=== PATIENT | female | born 1990 | race American Indian/Alaskan Native ===

== ENCOUNTER 2017-02-16 14:40 | Emergency (ER) | payer MEDICAID ==
[2017-02-16] MEDS ORDERED: Acetaminophen 500 MG Tab PO ONE (14:53)
--- NOTE | 2017-02-16 14:59 | EDM.PDOC ---
ED HPI GENERAL MEDICAL PROBLEM - General Chief Complaint: Skin Complaint Stated Complaint: CESEARAN AREA POSSIBLY INFECTED, [id number] Time Seen by Provider: 02/16/17 14:54 Source of Information: Reports: Patient History Limitations: Reports: No Limitations - History of Present Illness INITIAL COMMENTS - FREE TEXT/NARRATIVE: 26 yo [place] Female c/o Low Abdomen pain, Pt. s/p fourth csearean section Saturday (5 days ago). Pt. is out of Percocet. Onset: Today Onset Date: 02/16/17 Onset Time: 12:00 Duration: Day(s): Location: Reports: Abdomen Quality: Reports: Ache Severity: Moderate Worsens with: Reports: Movement Associated Symptoms: Reports: No Other Symptoms Lower Abdomen Pain Score (Numeric/FACES): 8 - Related Data Allergies Allergy/AdvReac Type Severity Reaction Status Date / Time amoxicillin Allergy Rash Verified 02/16/17 14:57 bupropion HCl Allergy Other Verified 02/16/17 14:57 [From Wellbutrin] venlafaxine HCl Allergy Other Verified 02/16/17 14:57 [From Effexor] prozac Allergy Nausea Uncoded 02/05/17 02:17 Home Meds: Home Meds Pnv No.122/Iron/Folic Acid [ Multi Tablet] 1 tab PO DAILY 02/05/17 [ History] Past Medical History - Past Health History Medical/Surgical History: Denies Medical/Surgical History HEENT History: Reports: None Cardiovascular History: Reports: Other (See Below) Other Cardiovascular History: pre-eclampsia with prior Respiratory History: Reports: None Gastrointestinal History: Reports: None Genitourinary History: Reports: Renal Calculus 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: Musculoskeletal History: Reports: None Neurological History: Reports: Seizure Psychiatric History: Reports: Addiction, Anxiety, Depression Endocrine/Metabolic History: Reports: Other (See Below) Other Endocrine/Metabolic History: Hx gestational diabetes Hematologic History: Reports: Anemia Immunologic History: Reports: None Oncologic (Cancer) History: Reports: None Dermatologic History: Reports: None - Infectious Disease History Infectious Disease History: Reports: None - Past Surgical History Head Surgeries/Procedures: Reports: None GI Surgical History: Reports: Cholecystectomy Social & Family History - Family History Family Medical History: Noncontributory - Tobacco Use Smoking Status *Q: Current Every Day Smoker Years of Tobacco use: 10 Packs/Tins Daily: 0.5 Used Tobacco, but Quit: No Second Hand Smoke Exposure: Yes - Caffeine Use Caffeine Use: Reports: Coffee, Soda - Alcohol Use Days Per Week of Alcohol Use: 0 - Recreational Drug Use Recreational Drug Use: Yes Recreational Drug Type: Reports: Benzodiazepines, Marijuana/Hashish ED ROS GENERAL - Review of Systems Review Of Systems: See Below Constitutional: Reports: No Symptoms HEENT: Reports: No Symptoms Respiratory: Reports: No Symptoms Cardiovascular: Reports: No Symptoms Endocrine: Reports: No Symptoms GI/Abdominal: Reports: Abdominal Pain (low mid pain) Musculoskeletal: Reports: No Symptoms Skin: Reports: No Symptoms Neurological: Reports: No Symptoms Psychiatric: Reports: No Symptoms Hematologic/Lymphatic: Reports: No Symptoms Immunologic: Reports: No Symptoms ED EXAM, SKIN/RASH Exam: See Below Exam Limited By: No Limitations General Appearance: Alert, WD/WN, No Apparent Distress Throat/Mouth: Normal Inspection Head: Atraumatic Neck: Normal Inspection Respiratory/Chest: No Respiratory Distress Cardiovascular: Normal Peripheral Pulses GI/Abdominal: Normal Bowel Sounds, Soft, Tender (mid low abdomen) Back Exam: Normal Inspection Extremities: Normal Inspection Neurological: Alert, Oriented, CN II-XII Intact Psychiatric: Normal Affect Skin: Warm, Dry, Intact, Normal Color, No Rash Lymphatic: No Adenopathy Course - Vital Signs Last Recorded V/S: Last Vital Signs Temp 37.1 C 02/16/17 14:47 Pulse 113 H 02/16/17 14:47 Resp 18 02/16/17 14:47 BP 146/75 H 02/16/17 14:47 Pulse Ox 98 02/16/17 14:47 - Orders/Labs/Meds Labs: Laboratory Tests 02/16/17 02/16/17 Range/Units 14:56 15:00 WBC 9.0 (5.0-10.0) 10^3/uL RBC 3.86 L (4.2-5.4) 10^6/uL Hgb 11.2 L (12.0-16.0) g/dL Hct 34.6 L (37.0-47.0) % MCV 89.6 (80-100) fL MCH 29.0 (27.0-34.0) pg MCHC 32.4 L (33.0-35.0) g/dL Plt Count 451 H (150-450) 10^3/uL Neut % (Auto) 61.3 (42.2-75.2) % Lymph % (Auto) 32.1 (20.5-50.1) % [place] % (Auto) 5.6 (2-8) % Eos % (Auto) 0.8 L (1.0-3.0) % Baso % (Auto) 0.2 (0.0-1.0) % Urine Color Straw (YELLOW) Urine Appearance Cloudy (CLEAR) Urine pH 6.5 (5.0-9.0) Ur Specific [place] 1.020 (1.005-1.030) Urine Protein Negative (NEGATIVE) Urine Glucose (UA) Negative (NEGATIVE) Urine Ketones Negative (NEGATIVE) Urine Occult Blood Trace-intact H (NEGATIVE) Urine Nitrite Negative (NEGATIVE) Urine Bilirubin Negative (NEGATIVE) Urine Urobilinogen 1.0 (0.2-1.0) mg/dL Ur Leukocyte Esterase Trace H (NEGATIVE) Urine RBC 0-5 /HPF Urine WBC 0-5 (0-5/HPF) /HPF Ur Epithelial Cells Few /HPF Amorphous Sediment Many H (0/HPF) /HPF Urine Bacteria Few (0-FEW/HPF) /HPF Urine Mucus Moderate H /LPF Meds: Medications Discontinued Medications Generic Name Dose Route Start Last Admin Trade Name Freq PRN Reason Stop Dose Admin Acetaminophen 500 mg 02/16/17 14:53 02/16/17 15:06 Tylenol Extra Strength PO 02/16/17 14:54 500 mg ONETIME ONE Administration Departure - Departure Time of Disposition: 15:49 Disposition: Home, Self-Care 01 Condition: Good Clinical Impression: Postoperative abdominal pain UTI (urinary tract infection) Qualifiers: Urinary tract infection type: acute cystitis Hematuria presence: with hematuria Qualified Code(s): N30.01 - Acute cystitis with hematuria - Discharge Information Forms: ED Department Discharge Additional Instructions: Rest Increase intake of Water and Cranberry Juice Take the oral antibiotic MCROBID 100mg BID # 14 For Post-op Pain : PERCOCET 5/325 take 1 Q 4-6 Hrs. PRN # 15 F/U w/ PCP
[2017-02-16 16:03] VITALS: BP 118/71
== END 2017-02-16 16:00 | disposition home or self-care (01) ==
LOC: DL.ED 14:40
DX: O86.22 Infection of bladder following delivery (principal); N30.01 Acute cystitis with hematuria; O99.89 Other specified diseases and conditions complicating pregnancy, childbirth and the puerperium; G89.18 Other acute postprocedural pain; O99.335 Smoking (tobacco) complicating the puerperium; F17.210 Nicotine dependence, cigarettes, uncomplicated; Z87.442 Personal history of urinary calculi; Z86.2 Personal history of diseases of the blood and blood-forming organs and certain disorders involving the immune mechanism; Z90.49 Acquired absence of other specified parts of digestive tract; Z88.1 Allergy status to other antibiotic agents; Z88.8 Allergy status to other drugs, medicaments and biological substances
CPT/HCPCS: 36415; 81001; 85025; 99284; A9270

== ENCOUNTER 2017-10-08 22:54 | Emergency (ER) | payer MEDICAID ==
[2017-10-08 23:38] VITALS: BP 145/90
[2017-10-09 00:45] LABS: CHLORIDE,CL 108 mmol/L (101-111); SODIUM,NA 141 mmol/L (135-145)
[2017-10-09] MEDS ORDERED: Potassium Chloride 10 MEQ Tab.ER PO ONE (01:06)
--- NOTE | 2017-10-09 01:11 | EDM.PDOC ---
ED HPI GENERAL MEDICAL PROBLEM - General Chief Complaint: Fever Stated Complaint: FEVER [id number] Time Seen by Provider: 10/08/17 23:15 Source of Information: Reports: Patient, RN, RN Notes Reviewed History Limitations: Reports: No Limitations - History of Present Illness INITIAL COMMENTS - FREE TEXT/NARRATIVE: Pt presents to the ER with c/o fever. She states her temperature has been running about 99.4 for the past month. She states she has been to the clinic twice in the past month for other things, but did not think to mention her lingering temperature. Patient denies chills, sob, cp, N/V/D. She denies any sources of skin infection. She denies cough, sore throat, ear pain. Patient states she has been having some bilateral flank pain at times for the past few weeks. 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 Bilateral Flank Pain Score (Numeric/FACES): 4 - Related Data Allergies Allergy/AdvReac Type Severity Reaction Status Date / Time amoxicillin Allergy Rash Verified 10/08/17 23:03 bupropion HCl Allergy Other Verified 10/08/17 23:03 [From Wellbutrin] venlafaxine HCl Allergy Other Verified 10/08/17 23:03 [From Effexor] prozac Allergy Nausea Uncoded 10/08/17 23:03 Home Meds: Home Meds Citalopram Hydrobromide [Celexa] 10 mg PO DAILY 10/08/17 [History] Vit D 1 tab PO WEEKLY 10/08/17 [History] Past Medical History - Past Health History Medical/Surgical History: Denies Medical/Surgical History HEENT History: Reports: None Cardiovascular History: Reports: Other (See Below) Other Cardiovascular History: pre-eclampsia with prior Respiratory History: Reports: None Gastrointestinal History: Reports: None Genitourinary History: Reports: Renal Calculus 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: Musculoskeletal History: Reports: None Neurological History: Reports: Seizure Psychiatric History: Reports: Addiction, Anxiety, Depression Endocrine/Metabolic History: Reports: Other (See Below) Other Endocrine/Metabolic History: Hx gestational diabetes Hematologic History: Reports: Anemia Immunologic History: Reports: None Oncologic (Cancer) History: Reports: None Dermatologic History: Reports: None - Infectious Disease History Infectious Disease History: Reports: None - Past Surgical History Head Surgeries/Procedures: Reports: None GI Surgical History: Reports: Cholecystectomy Social & Family History - Family History Family Medical History: Noncontributory - Tobacco Use Smoking Status *Q: Current Every Day Smoker Years of Tobacco use: 9 Packs/Tins Daily: 1 Used Tobacco, but Quit: No Second Hand Smoke Exposure: Yes - Caffeine Use Caffeine Use: Reports: Coffee, Soda - Alcohol Use Days Per Week of Alcohol Use: 0 - Recreational Drug Use Recreational Drug Use: Yes Drug Use in Last 12 Months: Yes Recreational Drug Type: Reports: Marijuana/Hashish ED ROS GENERAL - Review of Systems Review Of Systems: ROS reveals no pertinent complaints other than HPI. ED EXAM, GENERAL - Physical Exam Exam: See Below Exam Limited By: No Limitations General Appearance: Alert, WD/WN, No Apparent Distress Eye Exam: Bilateral Eye: EOMI, Normal Inspection Ears: Normal External Exam, Normal Canal, Hearing Grossly Normal, Normal TMs Nose: Normal Inspection, Normal Mucosa, No Blood Throat/Mouth: Normal Inspection, Normal Lips, Normal Teeth, Normal Gums, Normal Oropharynx, Normal Voice, No Airway Compromise Head: Atraumatic, Normocephalic Neck: Normal Inspection, Supple, Non-Tender, Full Range of Motion Respiratory/Chest: No Respiratory Distress, Lungs Clear, Normal Breath Sounds, No Accessory Muscle Use, Chest Non-Tender Cardiovascular: Normal Peripheral Pulses, Regular Rate, Rhythm, No Edema, No Gallop, No JVD, No Murmur, No Rub Peripheral Pulses: 2+: Radial (L), Radial (R) GI/Abdominal: Normal Bowel Sounds, Soft, Non-Tender, No Organomegaly, No Distention, No Abnormal Bruit, No Mass (Female) Exam: Deferred Rectal (Female) Exam: Deferred Back Exam: Normal Inspection, Full Range of Motion, CVA Tenderness (L), CVA Tenderness (R) Extremities: Normal Inspection, Normal Range of Motion, Non-Tender, Normal Capillary Refill, No Pedal Edema Neurological: Alert, Oriented, CN II-XII Intact, Normal Cognition, Normal Gait, Normal Reflexes, No Motor/Sensory Deficits Psychiatric: Normal Affect, Normal Mood Skin Exam: Warm, Dry, Intact, Normal Color, No Rash Lymphatic: No Adenopathy Course - Vital Signs Last Recorded V/S: Last Vital Signs Temp 99.4 F 10/08/17 22:57 Pulse 93 10/08/17 22:57 Resp 16 10/08/17 22:57 BP 145/90 H 10/08/17 22:57 Pulse Ox 99 10/08/17 22:57 - Orders/Labs/Meds Labs: Laboratory Tests 10/08/17 10/08/17 10/08/17 Range/Units 23:10 23:10 23:10 WBC (5.0-10.0) 10^3/uL RBC (4.2-5.4) 10^6/uL Hgb (12.0-16.0) g/dL Hct (37.0-47.0) % MCV (80-100) fL MCH (27.0-34.0) pg MCHC (33.0-35.0) g/dL Plt Count (150-450) 10^3/uL Neut % (Auto) (42.2-75.2) % Lymph % (Auto) (20.5-50.1) % [place] % (Auto) (2-8) % Eos % (Auto) (1.0-3.0) % Baso % (Auto) (0.0-1.0) % Sodium (135-145) mmol/L Potassium (3.6-5.0) mmol/L Chloride (101-111) mmol/L Carbon Dioxide (21.0-31.0) mmol/L Anion Gap BUN (7-18) mg/dL Creatinine (0.6-1.3) mg/dL Est Cr Clr Drug Dosing mL/min Estimated GFR (MDRD) BUN/Creatinine Ratio Glucose (74-105) mg/dL Calcium (8.4-10.2) mg/dl Total Bilirubin (0.2-1.0) mg/dL AST (10-42) IU/L ALT (10-60) IU/L Alkaline Phosphatase (42-121) IU/L Total Protein (6.7-8.2) g/dl Albumin (3.2-5.5) g/dl Globulin Albumin/Globulin Ratio Urine Color Yellow (YELLOW) Urine Appearance Slightly cloudy (CLEAR) Urine pH 6.0 (5.0-9.0) Ur Specific [place] 1.025 (1.005-1.030) Urine Protein 30 H (NEGATIVE) Urine Glucose (UA) Negative (NEGATIVE) Urine Ketones Negative (NEGATIVE) Urine Occult Blood Negative (NEGATIVE) Urine Nitrite Negative (NEGATIVE) Urine Bilirubin Negative (NEGATIVE) Urine Urobilinogen 0.2 (0.2-1.0) mg/dL Ur Leukocyte Esterase Negative (NEGATIVE) Urine RBC 0-5 /HPF Urine WBC 0-5 (0-5/HPF) /HPF Ur Epithelial Cells Few /HPF Urine Bacteria Few (0-FEW/HPF) /HPF Urine Mucus Moderate H /LPF Urine HCG, Qual Negative Urine Opiates Screen Negative (NEGATIVE) Ur Oxycodone Screen Negative (NEGATIVE) Urine Methadone Screen Negative (NEGATIVE) Ur Barbiturates Screen Negative (NEGATIVE) U Tricyclic Antidepress Negative (NEGATIVE) Ur Phencyclidine Scrn Negative (NEGATIVE) Ur Amphetamine Screen Negative (NEGATIVE) U Methamphetamines Scrn Negative (NEGATIVE) Urine MDMA Screen Negative (NEGATIVE) U Benzodiazepines Scrn Negative (NEGATIVE) Urine Cocaine Screen Negative (NEGATIVE) U Marijuana (THC) Screen Positive H (NEGATIVE) 10/09/17 10/09/17 Range/Units 00:12 00:12 WBC 8.0 (5.0-10.0) 10^3/uL RBC 3.75 L (4.2-5.4) 10^6/uL Hgb 10.0 L (12.0-16.0) g/dL Hct 31.1 L (37.0-47.0) % MCV 82.9 D (80-100) fL MCH 26.7 L (27.0-34.0) pg MCHC 32.2 L (33.0-35.0) g/dL Plt Count 307 D (150-450) 10^3/uL Neut % (Auto) 54.8 (42.2-75.2) % Lymph % (Auto) 31.3 (20.5-50.1) % [place] % (Auto) 11.1 H (2-8) % Eos % (Auto) 2.4 (1.0-3.0) % Baso % (Auto) 0.4 (0.0-1.0) % Sodium 141 (135-145) mmol/L Potassium 2.9 L (3.6-5.0) mmol/L Chloride 108 (101-111) mmol/L Carbon Dioxide 27.0 (21.0-31.0) mmol/L Anion Gap 8.9 BUN 21 H (7-18) mg/dL Creatinine 0.5 L (0.6-1.3) mg/dL Est Cr Clr Drug Dosing 140.41 mL/min Estimated GFR (MDRD) > 60 BUN/Creatinine Ratio 42.00 Glucose 84 (74-105) mg/dL Calcium 8.8 (8.4-10.2) mg/dl Total Bilirubin 0.5 (0.2-1.0) mg/dL AST 23 (10-42) IU/L ALT 22 (10-60) IU/L Alkaline Phosphatase 55 (42-121) IU/L Total Protein 7.1 (6.7-8.2) g/dl Albumin 3.6 (3.2-5.5) g/dl Globulin 3.5 Albumin/Globulin Ratio 1.03 Urine Color (YELLOW) Urine Appearance (CLEAR) Urine pH (5.0-9.0) Ur Specific [place] (1.005-1.030) Urine Protein (NEGATIVE) Urine Glucose (UA) (NEGATIVE) Urine Ketones (NEGATIVE) Urine Occult Blood (NEGATIVE) Urine Nitrite (NEGATIVE) Urine Bilirubin (NEGATIVE) Urine Urobilinogen (0.2-1.0) mg/dL Ur Leukocyte Esterase (NEGATIVE) Urine RBC /HPF Urine WBC (0-5/HPF) /HPF Ur Epithelial Cells /HPF Urine Bacteria (0-FEW/HPF) /HPF Urine Mucus /LPF Urine HCG, Qual Urine Opiates Screen (NEGATIVE) Ur Oxycodone Screen (NEGATIVE) Urine Methadone Screen (NEGATIVE) Ur Barbiturates Screen (NEGATIVE) U Tricyclic Antidepress (NEGATIVE) Ur Phencyclidine Scrn (NEGATIVE) Ur Amphetamine Screen (NEGATIVE) U Methamphetamines Scrn (NEGATIVE) Urine MDMA Screen (NEGATIVE) U Benzodiazepines Scrn (NEGATIVE) Urine Cocaine Screen (NEGATIVE) U Marijuana (THC) Screen (NEGATIVE) Meds: Medications Discontinued Medications Generic Name Dose Route Start Last Admin Trade Name Freq PRN Reason Stop Dose Admin Potassium Chloride 40 meq 10/09/17 01:06 10/09/17 01:13 Klor-Con 10 PO 10/09/17 01:07 40 meq ONETIME ONE Administration Departure - Departure Time of Disposition: 01:11 Disposition: Home, Self-Care 01 Condition: Fair Clinical Impression: Physically well but worried - Discharge Information Instructions: Fever, Adult, [id number] Forms: ED Department Discharge Additional Instructions: May use tylenol and/or ibuprofen for pain/fever RX: Potassium Chloride FOllow up with your primary care facility
== END 2017-10-09 01:20 | disposition home or self-care (01) ==
LOC: DL.ED 22:54
DX: Z71.1 Person with feared health complaint in whom no diagnosis is made (principal); F17.210 Nicotine dependence, cigarettes, uncomplicated; Z88.1 Allergy status to other antibiotic agents; Z88.8 Allergy status to other drugs, medicaments and biological substances; Z79.899 Other long term (current) drug therapy
CPT/HCPCS: 36415; 80053; 80305; 81001; 81025; 85025; 99283; A9270-GY

== ENCOUNTER 2017-11-25 20:55 | Emergency (ER) | payer MEDICAID ==
[2017-11-25] MEDS ORDERED: traMADol 50 MG Tab PO ONE (20:56)
[2017-11-25 21:00] VITALS: BP 141/77
[2017-11-25] MEDS ORDERED: Silver Sulfadiazine 1% Crm 50 GM Tube TOP ONE (21:09)
[2017-11-25] MEDS ORDERED: traMADol 50 MG Tab ONE (21:15)
--- NOTE | 2017-11-25 21:20 | EDM.PDOC ---
ED HPI GENERAL MEDICAL PROBLEM - General Chief Complaint: Burn Stated Complaint: LUEVANO ON FEET Time Seen by Provider: 11/25/17 21:05 Source of Information: Reports: Patient History Limitations: Reports: No Limitations - History of Present Illness INITIAL COMMENTS - FREE TEXT/NARRATIVE: Pain bilateral inner anles, states spilled tomatoe soup while at work short time ago. Blistered immediately. Bilateral Feet Pain Score (Numeric/FACES): 10 - Related Data Allergies Allergy/AdvReac Type Severity Reaction Status Date / Time amoxicillin Allergy Rash Verified 11/25/17 21:03 bupropion HCl Allergy Other Verified 11/25/17 21:03 [From Wellbutrin] venlafaxine HCl Allergy Other Verified 11/25/17 21:03 [From Effexor] prozac Allergy Nausea Uncoded 11/25/17 21:03 Past Medical History - Past Health History Medical/Surgical History: Denies Medical/Surgical History HEENT History: Reports: None Cardiovascular History: Reports: Other (See Below) Other Cardiovascular History: pre-eclampsia with prior Respiratory History: Reports: None Gastrointestinal History: Reports: None Genitourinary History: Reports: Renal Calculus 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: Musculoskeletal History: Reports: None Neurological History: Reports: Seizure Psychiatric History: Reports: Addiction, Anxiety, Depression Endocrine/Metabolic History: Reports: Other (See Below) Other Endocrine/Metabolic History: Hx gestational diabetes Hematologic History: Reports: Anemia Immunologic History: Reports: None Oncologic (Cancer) History: Reports: None Dermatologic History: Reports: None - Infectious Disease History Infectious Disease History: Reports: None - Past Surgical History Head Surgeries/Procedures: Reports: None GI Surgical History: Reports: Cholecystectomy Female Surgical History: Reports: Section Social & Family History - Family History Family Medical History: Noncontributory - Tobacco Use Smoking Status *Q: Current Every Day Smoker Years of Tobacco use: 8 Packs/Tins Daily: 1 - Caffeine Use Caffeine Use: Reports: Coffee, Soda - Recreational Drug Use Recreational Drug Use: No ED ROS GENERAL - Review of Systems Review Of Systems: ROS reveals no pertinent complaints other than HPI. ED EXAM, BURN/SMOKE INHALATION - Physical Exam Exam: See Below Exam Limited By: No Limitations General Appearance: Alert, Anxious, Moderate Distress Eye Exam: Bilateral Eye: EOMI Respiratory: No Respiratory Distress Cardiovascular: Normal Peripheral Pulses Neurological: Alert Psychiatric: Normal Affect, Anxious Skin Exam: Warm, Other (3x4 cm splach luevano bilateral inner foot, central 2nd degree burn/blistering 1.5cm left, 2 cm right, intact no weeping) Course - Vital Signs Last Recorded V/S: Last Vital Signs Temp 99.0 F 11/25/17 20:58 Pulse 112 H 11/25/17 20:58 Resp 16 11/25/17 20:58 BP 141/77 H 11/25/17 20:58 Pulse Ox 96 11/25/17 20:58 - Orders/Labs/Meds Meds: Medications Discontinued Medications Generic Name Dose Route Start Last Admin Trade Name Aurelia PRN Reason Stop Dose Admin Silver Sulfadiazine 50 gm 11/25/17 21:09 11/25/17 21:16 Silvadene 1% Cream 50 Gm TOP 11/25/17 21:10 1 unit ONETIME ONE Administration Tramadol HCl Confirm 11/25/17 21:15 11/25/17 21:31 Ultram Administered 11/25/17 21:16 Not Given Dose 100 mg .ROUTE .STK-MED ONE Departure - Departure Time of Disposition: 21:16 Disposition: Home, Self-Care 01 Condition: Good Clinical Impression: Burn, foot, second degree Qualifiers: Encounter type: initial encounter Laterality: unspecified laterality Qualified Code(s): T25.229A - Burn of second degree of unspecified foot, initial encounter - Discharge Information Instructions: Burn Care, Adult, [id number] Referrals: Keo Diez MD [Primary Care Provider] - Forms: ED Department Discharge Additional Instructions: Silvadene dressing change 2 times daily wash areas with cool soap and water twice daily follow up in clinic this week urgent if large increase redness, drainage or fever. Tylenol or ibuprofen for moderate pain tramadol 50mg one every 6 hours tonight for severe pain #2
== END 2017-11-25 21:28 | disposition home or self-care (01) ==
LOC: DL.ED 20:55
DX: T25.221A Burn of second degree of right foot, initial encounter (principal); T25.222A Burn of second degree of left foot, initial encounter; F17.210 Nicotine dependence, cigarettes, uncomplicated; Z88.1 Allergy status to other antibiotic agents; Z88.8 Allergy status to other drugs, medicaments and biological substances; X10.1XXA Contact with hot food, initial encounter; Y99.0 Civilian activity done for income or pay
CPT/HCPCS: 16020; 99283; A9270

== ENCOUNTER 2017-12-29 14:45 | Emergency (ER) | payer MEDICAID ==
[2017-12-29 15:10] VITALS: BP 102/58
[2017-12-29] MEDS ORDERED: Bacitracin Oint 1 GM U/D Packet TOP ONE (15:25)
--- NOTE | 2017-12-29 15:32 | EDM.PDOC ---
Scribed by Deena Anthony 12/29/17 1532 for Gavin Awda MD ED HPI GENERAL MEDICAL PROBLEM - General Chief Complaint: Laceration Stated Complaint: hand cut [id number] Time Seen by Provider: 12/29/17 15:15 Source of Information: Reports: Patient, RN, RN Notes Reviewed History Limitations: Reports: No Limitations - History of Present Illness INITIAL COMMENTS - FREE TEXT/NARRATIVE: Patient presented to ER with complaint of abrasion to left hand on a nail at her home prior to arrival. No other injuries. Tetanus is up to date. Onset: Today Location: Reports: Upper Extremity, Left Quality: Reports: Ache Severity: Mild Improves with: Reports: None Worsens with: Reports: None Associated Symptoms: Reports: No Other Symptoms Left Hand Pain Score (Numeric/FACES): 7 - Related Data Allergies Allergy/AdvReac Type Severity Reaction Status Date / Time amoxicillin Allergy Rash Verified 12/29/17 15:06 bupropion HCl Allergy Other Verified 12/29/17 15:06 [From Wellbutrin] venlafaxine HCl Allergy Other Verified 12/29/17 15:06 [From Effexor] prozac Allergy Nausea Uncoded 12/29/17 15:06 Home Meds: Home Meds Buprenorphine HCl/Naloxone HCl [Zubsolv 8.6-2.1 mg Tablet Sl] 1 each SL BID 07/18 [History] Sertraline HCl [Zoloft] 150 mg PO DAILY 12/29/17 [History] Past Medical History - Past Health History Medical/Surgical History: Denies Medical/Surgical History HEENT History: Reports: None Cardiovascular History: Reports: Other (See Below) Other Cardiovascular History: pre-eclampsia with prior Respiratory History: Reports: None Gastrointestinal History: Reports: None Genitourinary History: Reports: Renal Calculus 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: Musculoskeletal History: Reports: None Neurological History: Reports: Seizure Psychiatric History: Reports: Addiction, Anxiety, Depression Endocrine/Metabolic History: Reports: Other (See Below) Other Endocrine/Metabolic History: Hx gestational diabetes Hematologic History: Reports: Anemia Immunologic History: Reports: None Oncologic (Cancer) History: Reports: None Dermatologic History: Reports: None - Infectious Disease History Infectious Disease History: Reports: None - Past Surgical History Head Surgeries/Procedures: Reports: None GI Surgical History: Reports: Cholecystectomy Female Surgical History: Reports: Section Social & Family History - Family History Family Medical History: Noncontributory - Tobacco Use Smoking Status *Q: Current Every Day Smoker Years of Tobacco use: 5 Packs/Tins Daily: 1 - Caffeine Use Caffeine Use: Reports: None - Recreational Drug Use Recreational Drug Use: No ED ROS GENERAL - Review of Systems Review Of Systems: ROS reveals no pertinent complaints other than HPI. ED EXAM, SKIN/RASH Exam: See Below Exam Limited By: No Limitations General Appearance: Alert, WD/WN, No Apparent Distress Head: Atraumatic, Normocephalic Respiratory/Chest: No Respiratory Distress Cardiovascular: Normal Peripheral Pulses Extremities: Other (3cm superficial abrasion to the hypothenar eminence of the left hand. No FB, no active bleeding.) Course - Vital Signs Last Recorded V/S: Last Vital Signs Temp 36.8 C 12/29/17 15:07 Pulse 80 12/29/17 15:07 Resp 16 12/29/17 15:07 BP 102/58 L 12/29/17 15:07 Pulse Ox 100 12/29/17 15:07 - Orders/Labs/Meds Meds: Medications Discontinued Medications Generic Name Dose Route Start Last Admin Trade Name Freq PRN Reason Stop Dose Admin Bacitracin 1 dose 12/29/17 15:25 Bacitracin Oint 1 Gm TOP 12/29/17 15:26 ONETIME ONE Departure - Departure Time of Disposition: 15:26 Disposition: Home, Self-Care 01 Condition: Good Clinical Impression: Abrasion hand Qualifiers: Encounter type: initial encounter Laterality: left Qualified Code(s): S60.512A - Abrasion of left hand, initial encounter - Discharge Information Instructions: Abrasion, [id number] Forms: ED Department Discharge Additional Instructions: RX: Bactroban 0.2%. Follow up in clinic if any further problems. I have read and agree with the documentation that has been completed regarding this visit. By signing this record, I attest that the documentation was completed in my physical presence and is an accurate record of the encounter.
== END 2017-12-29 15:43 | disposition home or self-care (01) ==
LOC: DL.ED 14:45
DX: S60.512A Abrasion of left hand, initial encounter (principal); F17.210 Nicotine dependence, cigarettes, uncomplicated; Z88.1 Allergy status to other antibiotic agents; Z88.8 Allergy status to other drugs, medicaments and biological substances; W23.1XXA Caught, crushed, jammed, or pinched between stationary objects, initial encounter
CPT/HCPCS: 99283

== ENCOUNTER 2018-09-24 10:11 | Inpatient (IN) | payer MEDICAID ==
[~2018-09-24 10:11] MED LIST: Oxytocin/Normal Saline 30 UNIT/500 ML BAG IV ONE
[2018-09-24] MEDS ORDERED: Citric Acid/Sodium Citrate Solution 30 ML Cup PO ONE (10:18)
[2018-09-24] MEDS ORDERED: ceFAZolin 2 GM in Premix Bag 1 BAG IV ONE (10:18)
[2018-09-24] MEDS ORDERED: Methylergonovine 0.2 MG/1 ML Amp IM PRN (10:37)
[2018-09-24] MEDS ORDERED: Carboprost Tromethamine 250 MCG/1 ML Amp IM ONE (10:37)
[2018-09-24] MEDS ORDERED: diphenhydrAMINE 50 MG/ML SDV IVPUSH PRN (10:37)
[2018-09-24] MEDS ORDERED: Acetaminophen/oxyCODONE 325-5 MG Tab PO PRN ×2 (10:37)
[2018-09-24] MEDS ORDERED: Ondansetron 4 MG/2 ML SDV IV PRN (10:37)
[2018-09-24] MEDS ORDERED: ePHEDrine 50 MG/ML SDV IVPUSH PRN (10:37)
[2018-09-24] MEDS ORDERED: Naloxone 2 MG/2 ML Syringe IVPUSH PRN (10:37)
[2018-09-24] MEDS ORDERED: Acetaminophen 325 MG Tab PO PRN (10:37)
[2018-09-24] MEDS ORDERED: Tranexamic Acid 1,000 MG in Sodium Chloride 0.9% 100 ML IV PRN (10:37)
[2018-09-24] MEDS ORDERED: Misoprostol 400 MCG (4 X 100 MCG TAB) RECTAL PRN (10:37)
[2018-09-24] MEDS ORDERED: Oxytocin/Normal Saline 30 UNIT/500 ML BAG IV SCH (10:45)
[2018-09-24] MEDS ORDERED: Lactated Ringers 1,000 ML IV SCH (10:45)
[2018-09-24] MEDS: Lactated Ringers 1,000 ML IV SCH ×5 (10:59→23:59)
[2018-09-24] MEDS ORDERED: hydrOXYzine HCl 25 MG Tab PO ONE (15:13)
[2018-09-24] MEDS: Simethicone 80 MG Tab.Chew PO SCH ×3 (15:14→20:13)
[2018-09-24] MEDS ORDERED: Morphine 2 MG/ML Syringe IV PRN (16:42)
[2018-09-24] MEDS: Morphine 2 MG/ML Syringe IV PRN ×2 (17:13→20:18)
[2018-09-24] MEDS: Ketorolac 30 MG/ML SDV IVPUSH SCH ×2 (17:50→23:51)
[2018-09-24] MEDS ORDERED: BUPRENORPHINE 2 MG SL SCH (20:00)
[2018-09-24] MEDS ORDERED: [UNRECOGNIZED DRUG - REMARK] SL ONE (20:00)
[2018-09-24] MEDS: Docusate Sodium 100 MG Cap PO PRN (20:13)
[2018-09-25] MEDS: Ketorolac 30 MG/ML SDV IVPUSH SCH (05:39)
[2018-09-25] MEDS: Morphine 2 MG/ML Syringe IV PRN ×5 (05:42→22:28)
[2018-09-25] MEDS: Docusate Sodium 100 MG Cap PO PRN ×2 (09:09→21:22)
[2018-09-25] MEDS: Simethicone 80 MG Tab.Chew PO SCH ×4 (09:10→21:22)
[2018-09-25] MEDS: Prenatal Multivitamin with Calcium/Folic Acid/Iron Tab PO SCH (09:10)
--- NOTE | 2018-09-25 09:42 | OR ---
DATE: 09/24/2018 PREOPERATIVE DIAGNOSES: 1. Intrauterine at 39 and 1/7th weeks by 22 and 5/7 week ultrasound. 2. Preeclampsia. 3. Contractions upon admit. 4. Gestational diabetes mellitus with questionable control and noncompliance. Blood sugar - 79 fasting in the operating room prior to delivery. 5. Anemia of with hemoglobin of 9.6 on the date of admission. 6. Insufficient care. 7. Previous x4, requests repeat low-transverse section. 8. Hepatitis C positive. 9. Group B Streptococcus negative. 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 11.G6, P4-0-1-4. POSTOPERATIVE DIAGNOSES: 1. Intrauterine at 39 and 1/7th weeks by 22 and 5/7 week ultrasound, delivered. 2. Preeclampsia. 3. Contractions upon admit. 4. Gestational diabetes mellitus with questionable control and noncompliance. Blood sugar - 79 fasting in the operating room prior to delivery. 5. Anemia of with hemoglobin of 9.6 on the date of admission. 6. Insufficient care. 7. Previous x4, requests repeat low-transverse section. 8. Hepatitis C positive. 9. Group B Streptococcus negative. 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 11.G6, P4-0-1-4. PROCEDURE PERFORMED: Repeat low-transverse . ASSET ANALYST: Jasbir Martinez MD. ANESTHESIA: Spinal. EBL: 500 mL. IV FLUIDS: 1800 mL. URINE OUT: 300 mL and clear yellow. START TIME: 1209 hours. UTERINE INCISION: 1212 hours. DELIVERY TIME: 1213 hours. STOP TIME: 1230 hours. FINDINGS: Male, scores and weight pending. DESCRIPTION OF PROCEDURE IN DETAIL: After proper consent was obtained, the patient was brought to the operating room, where spinal anesthetic was administered. Ulrich was placed under preop under sterile conditions. Abdomen was prepped and draped in the normal sterile fashion with the patient was placed in supine position with left lateral tilt. A skin incision was then made over the lower abdomen in transverse Pfannenstiel- type fashion over previous scar. This was carried down to the fascia, which was scored in midline. Subcutaneous tissue was raked laterally with Summers retractor and fascial incision was extended with curved Mayos laterally. Soraida clamps times two were used to grasp the superior aspect of the fascia and rectus muscles were dissected from the fascia using sharp and blunt technique. In a similar fashion, Soraida clamps times two were used to grasp the inferior portion of the incision and rectus and pyramidalis muscles were dissected from the fascia using sharp and blunt technique. The rectus muscles were in midline with blunt technique. Abdominal cavity was then entered in blunt technique, and incision was extended superiorly and inferiorly with blunt technique. O large retractor was then introduced and used. Vesicouterine peritoneum was identified and incised in transverse fashion with Metzenbaum scissors and bladder flap was made digitally. A curvilinear incision was made on the lower uterine segment at 1212 hours. Clear fluid returned. Uterine incision was then extended in transverse fashion using blunt technique. vertex was then delivered through the incision followed by the rest of the infant without difficulty. Mouth and nares were suctioned. Cord was doubly clamped and cut. Infant was brought over to team. Then, approximately 10 mL cord blood obtained for labs. Placenta was then delivered with gentle cord traction and fundal massage. Uterine cavity was then cleared of all blood clots and debris with lap sponge. Childers clamps were used to grasp the uterine incision, and this was closed in a running, locked fashion, tied at lateral margins with 1-0 Vicryl. Left of midline was an area of bleeding, requiring one [id number] stitch and hemostasis was reassured thereafter. First inspection of the uterine incision revealed hemostasis. O retractor was then removed and paracolic gutters were then cleared of all blood clots and debris with lap sponge. Anterior cul-de-sac was then irrigated copiously and all blood clots removed. Second and final inspection of the uterine incision and anterior cul-de-sac revealed hemostasis. Rectus muscles were then reapproximated in the midline with a [id number] stitch of 1-0 Vicryl. Subfascial tissues were found to be hemostatic and fascia was closed in running fashion and tied at lateral margins with 0 looped PDS. Subcutaneous tissue was irrigated copiously and hemostasis was reassured. Skin was reapproximated with medium yvonne. Sterile Aquacel dressing was applied. Uterine fundus was firm and massaged at the conclusion of the case. No immediate complications were noted. Sponge, lap, and needle counts were correct. The patient received 2 g of Ancef preoperatively and Pitocin per protocol. The patient will receive Toradol at the conclusion of case for pain control. Mother and are currently stable at the time of dictation. [facility] /[id number]
--- NOTE | 2018-09-25 10:03 | PN ---
DATE: 09/24/2018 SUBJECTIVE: The patient has had some concerns with pain. She has been able barely to move her legs. She is now status post surgery approximately 4-1/2 hours to 5 hours and she did receive a spinal. Trace Grant, her pain specialist, who has her on buprenorphine contract, was contacted in regard to this patient earlier and he has now called in medications for her. OBJECTIVE: VITAL SIGNS: Blood pressure last one was 155/75, heart rate 48, temperature 97.3. Urine output is adequate. LUNGS: Clear to auscultation bilaterally HEART: S1-S2, regular rate rhythm. PELVIC: Firm uterus around the umbilicus. When distracted, no elicited pain is noted. She is able to move her toes minimally, cannot lift her legs completely up at this point in time. On serial evaluations, the patient was evaluated couple of times during her episodes that she was somewhat tearful and wanted something for pain. I did discuss this case with Trace Grant, mid-level provider, who is her pain specialist/person that works with her with buprenorphine. He has recommended and called in Suboxone to be given twice a day, start the evening dose tonight when it becomes available through the clinic and there were concerns with Medicaid covering this, but it appears that we can at least give one dose tonight and some tomorrow. Two calls were made to Trace as the patient did describe wanting to go off the Suboxone/buprenorphine, and discussed this with Trace, he said it would be okay as long as morphine was given and the patient was followed closely, however, he would be done with any type of pain contracts with her. Review of chart and records does reveal she has had a buprenorphine type contract with Trace and these have been canceled in the past with history of noncompliance. When asking Trace for further recommendations, he has recommended that if the patient is in pain, may give short-acting opioids in the form of morphine IV, but we will need to watch for respiratory depression and other concerns closely. ASSESSMENT AND PLAN: Postoperative day #0, status post repeat low transverse C- section with suspected preeclampsia, no signs and symptoms of severe preeclampsia at this point in time. The initial buprenorphine that was ordered will be stopped, it has not been given at this point in time, and we will use Suboxone for what Trace has recommended. For her pain, we will recommend morphine 1-2 mg IV q.1 hour p.r.n. for moderate-severe pain respectively. Discussed the use of medication adverse and unwanted effects, as well as precautions with the patient as well as requirement for continuous O2 sat monitoring and infant will need to be monitored in the Nursery as she may have significant sedation with this. I did discuss the patient that she may go off her buprenorphine/ Suboxone, but Trace most likely would terminate care with her and he, and the patient at this point in time has agreed to continue on her Suboxone and follow Trace's recommendations and we will treat pain with morphine as above. The patient described discriminatory care stating that she does not wanted to be discriminated again. It was discussed with patient that we have contacted the pharmacist, Trace Grant, and other specialists in the [facility] in regard to how to treat her in terms of her pain and watching for adverse affects and we are doing her best and making a game plan as above. I did discuss with her, it is rare that she is in pain this close after having her spinal anesthesia. I did discuss following as above and treating as above. Over 45 minutes has been spent in regard to the patient care, evaluation, and management in regard to her pain issues and we will treat as above. Of note, Trace Grant has left his cell phone #[phone], as he is her pain specialist, and he is on-call tonight as well, and may need to consult him further but at this point in time, we will continue with the morphine 1-2 mg IV q.1 hour p.r.n. pain, as well as Suboxone that he has recommended, and we will continue with these medications following for any adverse affects and make treatment plans accordingly. [facility] /[id number]
--- NOTE | 2018-09-25 10:42 | PN ---
DATE: 09/25/2018 Postoperative day #1 SUBJECTIVE: The patient is tolerating p.o., has not ambulated yet. At this point in time, Ulrich is in place. Passing gas. Pain is under control. The patient did receive up to 3 doses of morphine last night. There was an issue as she has been on buprenorphine in the past and has a contract with Trace Grant. He has been involved in the care through the phone, please see previous dictations in regard to this. The patient did receive her Suboxone last night and will be receiving it today if we can get it through the pharmacy. OBJECTIVE: Vital Signs: Temperature 92, heart rate 74, blood pressure 124/70, respiratory rate 16 to 14 and O2 saturations 96% to 97% on room air. Appearance: Wakes appropriately. In no obvious distress. Lungs: Clear to auscultation bilaterally. Heart: S1, S2. Regular rate and rhythm. Pelvic: Firm uterus -1 below umbilicus. Aquacel dressing has mild tracing on the right, no saturation noted. SCDs are on. Ulrich is in. I's and O's revealed 1150 out within 5 hours. LABORATORY DATA: White cell count 11.4, hemoglobin 7.8, and platelets 253 with hemoglobin yesterday being 9.6. ASSESSMENT AND PLAN: 1. Postoperative day #1, status post repeat low transverse section. 2. Anemia of acute blood loss, hemoglobin dropping down to 7.8. 3. Issues with pain control/contract in the past. Trace Grant has been involved with this. His cellphone has been posted at the OB floor if there are any questions and at this point in time, we will continue with Suboxone twice a day per his recommendation and morphine as needed, the patient only received 3 doses last night. We will continue to follow clinically and closely. Did discuss with the patient goals today of ambulating and being able to take Ulrich out and decreasing how many pain meds she is using because she will not be receiving narcotics when she leaves at the recommendation of her pain specialist. [facility] /[id number]
[2018-09-25] MEDS: [UNRECOGNIZED DRUG - REMARK] SL SCH ×2 (12:08→21:21)
[2018-09-25] MEDS: Ibuprofen 800 MG Tab PO PRN ×2 (13:29→21:23)
[2018-09-26] MEDS: Ibuprofen 800 MG Tab PO PRN ×3 (05:11→21:01)
[2018-09-26] MEDS: Morphine 2 MG/ML Syringe IV PRN (05:13)
[2018-09-26] MEDS ORDERED: Acetaminophen 325 MG Tab PO PRN (08:33)
[2018-09-26] MEDS: Simethicone 80 MG Tab.Chew PO SCH ×4 (09:10→21:00)
[2018-09-26] MEDS: Prenatal Multivitamin with Calcium/Folic Acid/Iron Tab PO SCH (09:10)
[2018-09-26] MEDS: Docusate Sodium 100 MG Cap PO PRN ×2 (09:10→21:01)
[2018-09-26] MEDS: Ferrous Sulfate 325 MG Tab PO SCH (09:10)
[2018-09-26] MEDS: [UNRECOGNIZED DRUG - REMARK] SL SCH (09:11)
[2018-09-26] MEDS: Acetaminophen 500 MG Tab PO PRN ×3 (09:13→22:23)
--- NOTE | 2018-09-26 13:33 | PN ---
DATE: 09/26/2018 Postoperative day #2. SUBJECTIVE: The patient is tolerating p.o., ambulating, urinating, passing flatus. She states her pain is under control. Did use two doses of morphine throughout the night. Nurses note decreased ambulation compared to as expected. The patient denies any headaches, visual changes, or upper abdominal pain. OBJECTIVE: Vital Signs: Temperature 98.5, heart rate 57, blood pressure 150s/90s; last 151/90; respiratory rate 18, O2 sats 98%. Lungs: Clear to auscultation bilaterally. Heart: S1, S2. Regular rate and rhythm. Abdomen: Firm uterus -2 below umbilicus. Aquacel dressing appears dry and intact with traced area on the right, unchanged. Extremities: No peripheral edema. No calf pain. ASSESSMENT AND PLAN: 1. Postop day #2; status post repeat low-transverse section. 2. Preeclampsia. The patient's blood pressures have been elevated. They are not in the severe range. We will continue to follow clinically and closely. 3. History of opioid and benzodiazepine abuse with negative urine drug screen upon admission and being on buprenorphine prior to admission; Suboxone has been called in by Trace Grant, patient's specialist, in regard to this. We will make call to his office to figure out discharge planning in terms of scripts that she can have and medication recommendations with anticipate discharge tomorrow. 4. Anemia acute blood loss. Hemoglobin dropped down to 7.8, yesterday we will repeat CBC tomorrow patient is currently asymptomatic. Vital signs are stable. We will follow closely in regard to this and start iron as well. Plans were discussed with patient; she understands and agrees, and we will anticipate follow up in the clinic with Dr. Diez on Saturday for staple removal as well as re-evaluating her baby. Dr. Molina covering in my absence thru weekend. MOD /[id number] MTDD
[2018-09-26] MEDS ORDERED: Ketorolac 30 MG/ML SDV IVPUSH ONE (14:41)
[2018-09-26] MEDS ORDERED: Propofol 200 MG/20 ML SDV IV ONE (14:41)
[2018-09-26] MEDS ORDERED: Morphine PF 1 MG/ML Amp ONE (14:41)
[2018-09-26] MEDS ORDERED: Ondansetron 4 MG/2 ML SDV IV ONE (14:41)
[2018-09-26] MEDS ORDERED: [UNRECOGNIZED DRUG - REMARK] SL SCH ×2 (17:00→21:00)
[2018-09-26] MEDS ORDERED: Labetalol 100 MG Tab PO ONE (20:40)
[2018-09-27] MEDS: Ibuprofen 800 MG Tab PO PRN ×2 (05:14→13:48)
[2018-09-27] MEDS ORDERED: [UNRECOGNIZED DRUG - REMARK] SL ONE (06:30)
[2018-09-27] MEDS: Prenatal Multivitamin with Calcium/Folic Acid/Iron Tab PO SCH (09:24)
[2018-09-27] MEDS: Docusate Sodium 100 MG Cap PO PRN (09:24)
[2018-09-27] MEDS: Simethicone 80 MG Tab.Chew PO SCH (09:25)
[2018-09-27] MEDS: Ferrous Sulfate 325 MG Tab PO SCH (09:25)
[2018-09-27 11:18] VITALS: BP 125/84
[2018-09-27] MEDS: Acetaminophen 500 MG Tab PO PRN (13:48)
[2018-09-27] MEDS ORDERED: [UNRECOGNIZED DRUG - REMARK] SL SCH (17:00)
--- NOTE | 2018-09-27 17:35 | DISCH ---
ADMITTING DIAGNOSES: 1. Intrauterine at 39-1/7th weeks by a 22-5/7th weeks' ultrasound. 2. Preeclampsia. 3. Contractions upon admission. 4. Gestational diabetes mellitus with questionable control and noncompliance. Blood sugar - 79 fasting in the operating room prior to delivery. 5. Anemia of with hemoglobin of 9.6 on the date of admission. 6. Insufficient care. 7. Previous x4, requested repeat low-transverse section. 8. Hepatitis C positive. 9. Group B streptococcus negative. 10.History of opioid and benzodiazepine abuse, currently on buprenorphine, with urine drug screen negative upon admission. 11. 6, para 4-0-1-4. DISCHARGE DIAGNOSES: 1. Intrauterine at 39-1/7th weeks by a 22-5/7th weeks' ultrasound. 2. Preeclampsia. 3. Contractions upon admission. 4. Gestational diabetes mellitus with questionable control and noncompliance. Blood sugar - 79 fasting in the operating room prior to delivery. 5. Anemia of with hemoglobin of 9.6 on the date of admission. 6. Insufficient care. 7. Previous x4, requested repeat low-transverse section. 8. Hepatitis C positive. 9. Group B streptococcus negative. 10.History of opioid and benzodiazepine abuse, currently on buprenorphine, with urine drug screen negative upon admission. 11. 6, para 5-0-1-5. HISTORY OF PRESENT ILLNESS: The patient presented to clinic with contractions. She was brought over for repeat low-transverse section, which was completed without complication. Please see preoperative history and physical along with operative note for further details. SUMMARY OF HOSPITAL COURSE: The patient was admitted on 09/24/2018 with the above diagnoses, presenting with contractions and underwent a repeat low- transverse section under spinal anesthesia with an estimated blood loss of 500 mL and successful delivery of a male term . scores were 9 and 9 at 1 and 5 minutes respectively. Baby boy was 3390 g at . Please see operative note for further details. Postoperative course has progressed with expectant management. The patient has struggled with postoperative pain and we have been in direct contact with Trace Mullen involving a proper pain management treatment plan due to her history of drug abuse. The patient did have an episode of hypertension overnight with blood pressures ranging in the 150s/90s that was resolved with labetalol 200 mg p.o. The patient did have another episode of hypertension this morning after going outside for a walk. Blood pressures were monitored and visualized that blood pressures returned back to normal baseline. The patient denies any symptoms of hypertension at this time. Please see hospital progress notes for further details. DISCHARGE EVALUATION: The patient has no concerns overnight. The patient is tolerating oral diet, ambulating well, urinating, passing flatus, denies bowel movement at this point. The patient reports mild tenderness at the incision site and no other concerns. The patient is expectantly looking forward to discharge home today. OBJECTIVE: Vital Signs: Temp 98.1, HR 58 bpm, BP 134/75, RR 16 breaths per minute, and oxygen saturation at 100% on room air. HEENT: Grossly normal. Pulmonary: Lungs are clear to auscultation bilaterally. No increased work of breathing noted. Cardiovascular: Regular rate and rhythm. No murmurs noted. Abdomen: Soft, mild tenderness to palpation in the periumbilical and suprapubic regions. Normoactive bowel sounds. Firm uterus palpated 4 cm below umbilicus. Aquacel dressing has mild shadowing of serosanguineous fluid on right. No saturation noted. Extremities: No signs of lower extremity edema. No calf tenderness to palpation. Neurologic: Grossly normal. LABORATORY DATA: Hematology: WBC 11.9; RBC 3.18; hemoglobin 8.8, which is up from 7.8 on 09/26/2018; platelet count 329. DISCHARGE CONDITION: Good. DISCHARGE MEDICATIONS: Prescriptions for: 1. Ferrous sulfate 325 mg provided. 2. Ibuprofen 800 mg tablets. 3. Acetaminophen 500 mg tablets. FOLLOWUP: The patient was advised to follow up with Dr. Diez in clinic on 09/30/2018. Pain management with provided prescriptions listed above was discussed. The patient is in agreement with this plan. The patient was advised to call Labor and Delivery with any further questions prior to clinic visit on Saturday with Dr. Diez and a discussion was had regarding pain management with Trace Howell regarding available medications. The patient verbalized understanding and is in agreement with discharge plan. Education regarding care for baby during this period was also provided. The patient was seen and evaluated today by myself and Dr. Betzaida Molina. Discharge is under advisement of Dr. Betzaida Molina. -Ekaterina Eli, MS-III [facility] /[id number] Patient was personally seen and examined with the medical student. I reviewed the noted scribed on my behalf and necessary changes have been made to reflect my opinion on the history, exam, assessment, and plan. Betzaida Molina MD [facility]
== END 2018-09-27 13:55 | disposition home or self-care (01) | DRG 787 ==
LOC: DL.OBCHECK 10:11 → DL.OB 10:17 → OBSVTOIN 12:13 → DL.OB 12:13
PROVIDERS: ADMIT Family Medicine; ATTEND Family Medicine
PROC: 10D00Z1 Extraction of Products of Conception, Low, Open Approach (ICD-10-PCS; principal; 2018-09-24)
DX: O34.211 Maternal care for low transverse scar from previous cesarean delivery (principal); O98.42 Viral hepatitis complicating childbirth; D62 Acute posthemorrhagic anemia; O14.14 Severe pre-eclampsia complicating childbirth; O99.334 Smoking (tobacco) complicating childbirth; O16.5 Unspecified maternal hypertension, complicating the puerperium; O90.81 Anemia of the puerperium; O24.420 Gestational diabetes mellitus in childbirth, diet controlled; B18.2 Chronic viral hepatitis C; Z3A.39 39 weeks gestation of pregnancy; Z37.0 Single live birth
CPT/HCPCS: 36415; 51702; 80305-QW; 82962; 85027; 86850; 86900; 86901; A9270-GY; J0690; J1885; J2270; J2274; J2405; J2590; J2704; J7120

== ENCOUNTER 2019-12-07 00:38 | Inpatient (IN) | payer SELFPAY ==
[2019-12-07] MEDS ORDERED: ePHEDrine 50 MG/ML SDV IVPUSH PRN (01:23)
[2019-12-07] MEDS ORDERED: Acetaminophen 325 MG Tab PO PRN (01:23)
[2019-12-07] MEDS ORDERED: Misoprostol 400 MCG (4 X 100 MCG TAB) RECTAL PRN (01:23)
[2019-12-07] MEDS ORDERED: Naloxone 2 MG/2 ML Syringe IVPUSH PRN (01:23)
[2019-12-07] MEDS ORDERED: diphenhydrAMINE 50 MG/ML SDV IVPUSH PRN (01:23)
[2019-12-07] MEDS ORDERED: Ondansetron 4 MG/2 ML SDV IVPUSH PRN (01:23)
[2019-12-07] MEDS ORDERED: Acetaminophen/oxyCODONE 325-5 MG Tab PO PRN ×2 (01:23)
[2019-12-07] MEDS ORDERED: Methylergonovine 0.2 MG/1 ML Amp IM PRN (01:23)
[2019-12-07] MEDS ORDERED: Tranexamic Acid 1,000 MG in Sodium Chloride 0.9% 100 ML IV PRN (01:23)
[2019-12-07] MEDS ORDERED: Docusate Sodium 100 MG Cap PO PRN (01:23)
[2019-12-07] MEDS ORDERED: Carboprost Tromethamine 250 MCG/1 ML Amp IM PRN (01:23)
[2019-12-07] MEDS ORDERED: ceFAZolin 2 GM in Premix Bag 1 BAG IV ONE (01:32)
[2019-12-07] MEDS ORDERED: Citric Acid/Sodium Citrate Solution 30 ML Cup PO ONE (01:39)
[2019-12-07] MEDS ORDERED: Oxytocin/Normal Saline 60 UNIT/1,000 ML BAG ONE (01:39)
[2019-12-07] MEDS: Lactated Ringers 1,000 ML IV SCH ×4 (01:40→05:58)
--- NOTE | 2019-12-07 02:14 | OBOUT ---
DATE: 12/07/2019 DATE AND TIME OF NST: 12/07/2019, 0050 to 0110. REASON FOR NST: 1. Intrauterine at 39 weeks by 17 and 2/7 week ultrasound. 2. Active labor. Advanced cervical dilation. Meconium-stained fluid. Nonreassuring status. 3. G8, P5-0-2-5 with 5 previous C-sections. 4. Gestational hypertension versus preeclampsia, workup being currently done. NST INTERPRETATION: During this time period, heart tone at baseline is approximately 145 to 150 and there are no accelerations seen. Minimal variability noted and what appears to be an early deceleration with 1 of the contractions. Tocometer reveals 3 contractions during this time period felt by patient. Initial blood pressure 161/94, heart rate 60. Recheck after that was 153/90 with a heart rate of 60. ASSESSMENT: 1. Non-stress test, nonreactive, non-reassuring. 2. Tocometer with contractions. PLAN: IV bolus has been started. Preeclampsia labs have been done. With her previous C-sections, advanced cervical dilation and gestational hypertension versus preeclampsia with nonreassuring status, we will proceed to the OR as soon as crew is ready and available. Please see H and P as well for further details. [facility] /[id number]
--- NOTE | 2019-12-07 03:05 | HP ---
PATIENT IDENTIFICATION: Ana Saavedra is a 29-year-old, G8, P5-0-2-5, intrauterine at 39 weeks by 17-2/7-week ultrasound, who presents with leaking greenish fluid and contractions. HISTORY OF PRESENT ILLNESS: The patient states at approximately 12:15 a.m. on date of admission, the patient was lying down and woke up in a puddle of greenish-colored fluid that was enough to soak through her clothing and what she was lying in and continues to persist and has been worsening over time, associated have been the contractions rated 8 to 9 out of 10 felt in the lower abdomen, radiating to the back and coming on every 5 minutes. To put this in context, she was going to be seen yesterday at the hospital with suspected contractions and did not make it to the OB floor for evaluation. She has had limited care with 2 visits, 1 in July, 1 in August. She was in the re-entry program back in August, has history of drug use. She also has a history of 5 previous C-sections. Records were called for, reviewed as below, and supplemented by patient history. OBSTETRICAL HISTORY: All of them C-sections. 1. 02/15/2010, 39 weeks, delivered female, 6 pounds 13 ounces. 2. 2010, spontaneous . 3. 03/21/2012, 39 weeks, term male, 9 pounds, that complicated by gestational diabetes mellitus. 4. 05/06/2015, 37-3/7 weeks term male, 6 pounds 4 ounces. 5. 10/2015, spontaneous . 6. 02/05/2017, 38 weeks, delivered term male, 6 pounds 15.8 ounces. 7. 09/24/2018, 39-1/7 weeks male, 7 pounds 7.6 ounces. This was complicated by preeclampsia. ANTEPARTUM LABORATORIES: ABO blood type O positive, negative antibody. Rubella immune. Syphilis antibody nonreactive. Negative hepatitis B surface antigen. Hepatitis C antibody positive. Negative HIV, GC, and chlamydia. 1-hour GTT was not done during this . GBS is unknown. Wet prep was negative. ALLERGIES: Multiple. Amoxicillin, but can take cephalosporins and has taken Ceftin and Keflex in 2016 without reaction per chart review. Other allergies include Effexor, Prozac, Wellbutrin. PAST MEDICAL/PAST SURGICAL HISTORY: Remarkable for C-sections as above. Hepatitis C antibody positive in the past and during this . Cholecystectomy in 2016. History of tobacco dependence. Chlamydia in the past. Chickenpox as a child. History of anxiety, stress disorder. Substance abuse in the past. Depression. FAMILY HISTORY: Paternal aunt with breast cancer. Diabetes in father. Negative family history of defects, anesthesia problems, or bleeding problems. SOCIAL HISTORY: Currently lives in the [facility]. Lives with Mark Merida, and that is the father of the baby and her boyfriend. Not currently working. The patient has history of smoking in the past, history of drug use in the past. Denies any drug use except for earlier in the consisting of methamphetamine. REVIEW OF SYSTEMS: Otherwise quickly reviewed and felt to be noncontributory other than the above. OBJECTIVE: Vital Signs: Last blood pressure 149/106, recheck 151/95. The patient is afebrile. Respiratory rate 12 and 16. Appearance: Female, appears stated age, acting appropriate. Nontoxic appearance. Breathing through contractions, but answering questions appropriately in between. HEENT: Head is atraumatic. EOMs intact. PERRLA. No scleral icterus. No otorhinorrhea. Mucous membranes are moist. Neck: No obvious tenderness. Lungs: Clear to auscultation bilaterally. No increased work of breathing. Heart: S1 and S2. Regular rate and rhythm. Abdomen: Gravid. Justen's indeterminate. Nontender and nondistended. Bowel sounds positive. No organomegaly, pulsatile masses, or obvious hernias. No rebound, rigidity, or guarding with monitors applied. Genitourinary: Normal external female genitalia. Normal position and presentation of urethra. Vaginal exam reveals her to be 5 cm, 80% to 90% effaced, -1 station, vertex suspected with copious amounts of meconium-stained fluid leaking from the vaginal orifice. Extremities: No peripheral edema. Deep tendon reflexes 2 to 3 out of 4 bilaterally and symmetric in lower extremities. Psychiatric: Mood and affect congruent. Judgment and insight intact. Skin: No cyanosis, clubbing, or jaundice. INVESTIGATIONS: Hemoglobin 10.1, platelets 245. NST initially done was felt to be nonreactive and with minimal variability, contractions every 5 minutes on average. Pending are PIH labs, type and screen. ASSESSMENT: 1. Intrauterine at 39 weeks by 17-2/7-week ultrasound. 2. Spontaneous rupture of membranes with meconium-stained fluid at 0015 hours on date of admission. 3. Active labor, advanced cervical dilation being 5 cm upon admission. 4. Nonreassuring status. 5. Not a transfer candidate. 6. Repeat x5. 7. Gestational hypertension versus preeclampsia workup being currently done. No signs or symptoms of severe preeclampsia at this point in time other than pending on labs. 8. Amoxicillin allergy, but tolerated Ceftin and Keflex in 2016 without reaction. 9. History of preeclampsia and gestational diabetes mellitus in previous . 10.Limited care. 11.Group B Streptococcus unknown. 12.Hepatitis C antibody positive. 13.History of urinary tract infection in the back in July 2019 and treated. 14.G8, P5-0-2-5. PLAN: Due to the patient not being a transfer candidate, previous x5, nonreassuring status, and elevated blood pressures, we will proceed to the OR as soon as crew is ready and available. I did discuss with her risks, benefits, alternatives, complications of including, but not limited to, infection; bleeding; damage to surrounding organs such as bowel, bladder, tubes, uterus, ovaries, and sometimes fetus; rarely needing a blood transfusion or further surgery, and even rarer maternal or . She understands, agrees, and wishes to proceed. Verbal and written consent obtained and questions were answered. We will proceed to the OR as soon as crew is ready and available. [employer] drug screen will also be done, and we will proceed as above. I did discuss with the patient she is not a transfer candidate. She understands and agrees, and we will proceed as soon as crew is ready and available. [facility] /[id number] DARIUS
[2019-12-07] MEDS ORDERED: Oxytocin/Normal Saline 30 UNIT/500 ML BAG IV SCH (03:15)
--- NOTE | 2019-12-07 04:08 | OR ---
DATE: 12/07/2019 PREOPERATIVE DIAGNOSES: 1. Intrauterine at 39 weeks by 17 and 2/7 week ultrasound. 2. Active labor upon admit being 5 cm with advanced cervical dilation. 3. Nonreassuring status. 4. Spontaneous rupture of membranes at approximately 0015 hours on the date of admission, consisting of meconium-stained fluid. 5. Not a transfer candidate due to the above. 6. Repeat section x5. 7. Preeclampsia confirmed while in the OR when labs returned without severe features. 8. Amoxicillin allergy, but tolerated Ceftin and Keflex in 2016 without reaction and received Ancef preoperatively. 9. History of preeclampsia and gestational diabetes mellitus with previous pregnancies. 10.Limited care. 11.Group B Streptococcus unknown. 12.Hepatitis C antibody positive. 13.History of urinary tract infection in the in 07/2019, treated. 14.Positive THC on urine drug screen. 15. 8, para 5-0-2-5. POSTOPERATIVE DIAGNOSES: 1. Intrauterine at 39 weeks by 17 and 2/7 week ultrasound - delivered. 2. Active labor upon admit being 5 cm with advanced cervical dilation. 3. Nonreassuring status. 4. Spontaneous rupture of membranes at approximately 0015 hours on the date of admission, consisting of meconium-stained fluid. 5. Not a transfer candidate due to the above. 6. Repeat section x5. 7. Preeclampsia confirmed while in the OR when labs returned without severe features. 8. Amoxicillin allergy, but tolerated Ceftin and Keflex in 2016 without reaction and received Ancef preoperatively. 9. History of preeclampsia and gestational diabetes mellitus with previous pregnancies. 10.Limited care. 11.Group B Streptococcus unknown. 12.Hepatitis C antibody positive. 13.History of urinary tract infection in the in 07/2019, treated. 14.Positive THC on urine drug screen. 15. 8, para 5-0-2-5. PROCEDURE PERFORMED: Nonstress test followed by repeat low transverse section. BLOCK INSPECTOR: Betzaida Molina M.D. ANESTHESIA: Spinal. ESTIMATED BLOOD LOSS: 500 mL. INTRAVENOUS FLUIDS: 800 mL of lactated Ringer's, 200 mL of Pitocin. URINE OUTPUT: 125 and clear yellow. START: 222. UTERINE INCISION: 225. DELIVERY: 226. STOP: 248. FINDINGS: Male, score 9 and 9, weight pending. DESCRIPTION OF PROCEDURE IN DETAIL: After proper consent was obtained, the patient was brought to the operating room where spinal anesthetic was administered. Ulrich was placed in the preop under sterile conditions. Abdomen was prepped and draped in normal sterile fashion. The patient was placed in supine position with left lateral tilt. A skin incision was then made over lower abdomen in a transverse Pfannenstiel- type fashion. This was carried down the fascia and scored in the midline. Subcutaneous tissue raked laterally with Summers retractor, and fascial incision was extended in transverse fashion using curved Ryan's. Soraida clamps x2 were used to grasp the superior aspect of the fascia, and rectus muscles were dissected from the fascia using sharp and blunt technique. On the left side of the region, there was minimal difficulty finding plane where the fascia and rectus muscles were, but was discernible and this was most likely related scar tissue. Soraida clamps x2 were then used to grasp the inferior portion of the incision, and rectus and pyramidalis muscles were dissected from the fascia using sharp and blunt technique. Abdominal muscles were in the midline with blunt technique. Abdominal cavity was entered in blunt technique, and incision was extended superiorly and inferiorly with blunt technique. O large retractor was then introduced and used. There was scarring on the lower uterine segment with some mild thickening superior to this. Uterine incision was made over the lower uterine segment in a curvilinear fashion. Uterus was entered sharply and this was at 0226 hours. Bulging bag of water consisting of meconium-stained fluid was noted and then ruptured with Allis clamps. Subsequently, vertex was delivered through the incision followed by rest of the infant with nuchal cord x1, reduced bluntly at delivery. Mouth and nares were suctioned. Cord was doubly clamped and cut, and infant was brought over to the team. Then, approximately 10 mL of cord blood was obtained for labs. Placenta then delivered with gentle cord traction and fundal massage. Uterine cavity was cleared of all blood clots and debris with lap sponge. Childers clamps were used to grasp the uterine incision. This was closed in a running locked fashion and tied at lateral margins with 1-0 Vicryl. Midline and right of midline required 3 [id number] stitches for hemostasis. First inspection of the uterine incision revealed hemostasis. O retractor was then removed and paracolic gutters were then cleared of all blood clots and debris with lap sponge. Anterior cul-de-sac was irrigated copiously and all blood clots and debris were removed. Second and final inspection of the uterine incision and anterior cul-de-sac revealed hemostasis. Rectus muscles were then reapproximated in midline with [id number] stitch using 1-0 Vicryl. Subfascial tissues were found to be hemostatic. Fascia was closed in a running fashion and tied at lateral margins with 0 looped PDS. Subcutaneous tissue was irrigated copiously. Hemostasis was reassured. Skin was reapproximated with medium yvonne. Sterile Aquacel dressing was applied. Uterine fundus was firm and massaged at the conclusion of the case, -2 below the umbilicus. No immediate complications were noted. Sponge, lap, and needle counts were correct. The patient received 2 g of Ancef preoperatively, Pitocin per protocol, and received Toradol at the conclusion of the case for pain control. Mother and are currently stable at the time of dictation. [facility] /[id number] DARIUS
[2019-12-07] MEDS ORDERED: Magnesium Sulfate/Water 100 ML ONE (05:10)
[2019-12-07] MEDS ORDERED: Magnesium Sulfate/Water 100 ML IV STA (05:40)
[2019-12-07] MEDS ORDERED: Magnesium Sulfate/Water 20 GM/500 ML BAG IV STA (05:44)
[2019-12-07] MEDS ORDERED: Magnesium Sulfate/Water 20 GM/500 ML BAG ONE (05:45)
[2019-12-07 06:11] LABS: ANION GAP 9.6 mEq/L (7-13); CHLORIDE,CL 106 mmol/L (98-107); SODIUM,NA 138 mmol/L (136-145)
[2019-12-07] MEDS ORDERED: Dexamethasone 4 MG/ML SDV IV ONE (06:29)
[2019-12-07] MEDS ORDERED: Oxytocin/Normal Saline 30 UNIT/500 ML BAG IV ONE (06:29)
[2019-12-07] MEDS ORDERED: Sodium Bicarbonate 4.2% 2.5 MEQ/5 ML SDV ONE (06:29)
[2019-12-07] MEDS ORDERED: Midazolam 1 MG/ML 2 ML SDV IV ONE (06:29)
[2019-12-07] MEDS ORDERED: Ketorolac 30 MG/ML SDV IVPUSH ONE (06:29)
[2019-12-07] MEDS ORDERED: Morphine PF 1 MG/ML Amp ONE (06:29)
[2019-12-07] MEDS ORDERED: Ondansetron 4 MG/2 ML SDV IV ONE (06:29)
[2019-12-07] MEDS ORDERED: Lactated Ringers 1,000 ML IV ONE (06:29)
[2019-12-07 07:15] VITALS: PULSE 56
[2019-12-07 07:30] VITALS: BP 176/91
--- NOTE | 2019-12-07 08:19 | PN ---
DATE: 12/07/2019 Critical Care Note I was called in to the room stat as the patient was having elevated blood pressures, bradycardia and significant amount of vaginal bleeding. The patient had a with delivery time of 0227 hours. in the PACU was noted to do well. Routine cares were given and then was brought over to the floor and shortly thereafter started having elevated blood pressure in the severe range with 160s systolic and diastolic as high as 108. I was called to the room. Stat EKG was done prior to this and hemorrhage, cart called for. OBJECTIVE: Vital Signs: Blood pressures systolic 153, diastolic 108. Another one 169/92, another one 141/93. Heart rates 83, 43 and 57. Appearance: Female with pain when doing the exam. Somewhat tearful and anxious at times, calm at other times. Lungs: Clear to auscultation bilaterally. Heart: S1, S2. Bradycardia noted. No obvious extra heart sounds, murmurs, rubs or gallops or irregularity heard. Abdomen: Firm uterus -2 below umbilicus. Aquacel dressing, mild shadowing in the midline approximately 3 cm. Pelvic: Vaginal area reveals blood coming from the vaginal region, oozing with some clot noted with an EBL approximately of 1000 to 1500 mL during this time period after coming back from the PACU. Subsequently, speculum exam was done in the room under sterile, did reveal some clot around the cervical os. This was removed with swabs and ring forceps and bleeding continued despite this enough to pool the speculum and come out. Subsequently gentle bimanual exam was done, noted to have clot in the lower uterine segment and bimanual was only to the cervical region where it enters into the uterus. Clot was cleared from this area and continued bleeding was noted thereafter. Due to the amount of bleeding and severity of her care, decision was made at that time to proceed with magnesium sulfate bolus for her severe preeclampsia and call to transfer to higher level care. With exam, small finger uterine curettage was done in the lower cervical region and clot returned. Stat labs were called for. Resulting now; white cell count 11.4, hemoglobin 8.2 compared to predelivery hemoglobin of 10.1, platelets of 199 compared to predelivery platelets of 245. Pending are clotting studies, fibrinogen, PT/INR, PTT, magnesium level and a CMP. Previous evaluations did reveal a urine protein-creatinine ratio in the 720 range with no evidence of increased HELLP labs other than uric acid minimally elevated at 7.4, and LDH elevated at 260. EKG was done stat, did reveal by my eyes with over read by Internal Medicine, sinus bradycardia with a rate of 49, ID interval of 151. Intervals intact otherwise. [place] approximately 60 degrees. Machine reads at 65. No obvious significant ST changes or Q-waves noted. ASSESSMENT AND PLAN: 1. day #0 approximately 3 to 3-1/2 hours after delivery with hemorrhage of 1500 mL after delivery added to 500 mL estimate with delivery to put her at 2000 mL. 2. Anemia of acute blood loss with hemoglobin dropping. 3. Preeclampsia with severe features, now noted. No significant severe preeclampsia findings were noted prior to delivery that were consistent in nature with her blood pressures, but there they are consistent at this point in time and we will proceed with magnesium sulfate 4 g bolus followed by 2 g per hour. We will need to follow closely. Type and crossmatch has been called for 2 units; however, call has been made to Dr. Mark in [place] who has graciously agreed to accept the patient in transfer. Therefore, we will proceed with transfer if blood is not ready in interest of time and amount of bleeding that she has had as well as being started on magnesium sulfate and need for monitoring. The patient understands and agrees with the above treatment, but we did discuss with her the risks associated with transfer, importance of transfer at this point in time. She understands and agrees and wished to proceed. We will transfer to [place] via [facility] as of current time of dictation. Over 1/2 hour has been spent in critical care evaluation and management of this patient including the above evaluation, gentle bimanual exam with finger uterine curettage of the lower cervical region. Please see above. [facility] /[id number]
--- NOTE | 2019-12-07 08:22 | PN ---
DATE: 12/07/2019 ADDENDUM: After bimanual exam done and bleeding was noted to continue to persist minimally, 800 mcg of Cytotec was given rectally. [facility] /[id number]
--- NOTE | 2019-12-07 08:35 | DISCH ---
DATE: 12/07/2019 SUBJECTIVE: I was called to the room stat as they were getting ready to transfer her over to [facility]. OBJECTIVE: General: The patient appears somewhat comfortable, complains of headache and wooziness related to her magnesium. Vital Signs: Blood pressure 160s/90s, heart rates between 60s and 80s, respiratory rates between 12 and 16. Pelvic: Vaginal exam, she does have blood oozing from the vaginal region, another 250 mL plus EBL and then bimanual exam was done with continued finger uterine curettage of the uterine lining to remove clot. This was subsequently done with bleeding slowing thereafter with another EBL of another clot and blood loss of around 500. For this round, she has had 750 mL blood loss along with her 2000 blood loss. TREATMENTS INSTITUTED: IV fluid boluses have been given. TXA has been given. Magnesium sulfate for seizure prophylaxis with her severe preeclampsia and we will proceed with 2 units of packed red blood cells. They are going to be given. They are type specific and they currently have 5 minutes left on the crossmatch, but due to urgency, we will start these so we can get her transferred to higher level of care. We will call the team if there is any incompatibility, but none is noted at this current time. ASSESSMENT: Severe hemorrhage with anemia of acute blood loss despite interventions as above including 800 mcg of Cytotec rectally, TXA, IV fluid boluses and 2 bimanual exams with finger uterine curettage of the lower uterine segment, cervical region and removal of clot. PLAN: We will proceed to transfer to higher level care in a stat fashion, 2 units of packed red blood cells in addition to IV fluid resuscitation, and we will continue on magnesium sulfate. Did discuss with the [facility] crew watching blood pressure closely, may need to proceed with labetalol if consistently severe high blood pressures, but we will continue to follow clinically and closely at this point in time. At current time of dictation, the patient is being transferred via [facility] at this time. over 30 minutes has been spent in critical care in regards to this patient. over 30 minutes spent in discharge management of this patient. condition on discharge compared to admission: guarded discharge to [facility] as above to be transferred to [facility]. discharge orders and meds per them. [facility] /[id number] DARIUS
[2019-12-07] MEDS ORDERED: Ketorolac 30 MG/ML SDV IVPUSH SCH (09:00)
[2019-12-07] MEDS ORDERED: Simethicone 80 MG Tab.Chew PO SCH (09:00)
[2019-12-07] MEDS ORDERED: Prenatal Multivitamin with Calcium/Folic Acid/Iron Tab PO SCH (09:00)
[2019-12-08] MEDS ORDERED: Ibuprofen 800 MG Tab PO PRN (05:00)
== END 2019-12-07 06:30 | DRG 788 ==
LOC: DL.OBCHECK 00:38 → DL.MS 01:24 → OBSVTOIN 02:27
PROVIDERS: ADMIT Family Medicine; ATTEND Family Medicine
PROC: 10D00Z1 Extraction of Products of Conception, Low, Open Approach (ICD-10-PCS; principal; 2019-12-07)
PROC: 4A1HXCZ Monitoring of Products of Conception, Cardiac Rate, External Approach (ICD-10-PCS; 2019-12-07)
DX: O34.211 Maternal care for low transverse scar from previous cesarean delivery (principal); O77.0 Labor and delivery complicated by meconium in amniotic fluid; Z3A.39 39 weeks gestation of pregnancy; Z37.0 Single live birth; Z20.828 Contact with and (suspected) exposure to other viral communicable diseases
CPT/HCPCS: 01961; 36415; 36430; 51702; 59409; 80053; 80305-QW; 81003; 82565; 82570; 82962; 83615; 83735; 84156; 84450; 84460; 84520; 84550; 85027; 85384; 85610; 85730; 86850; 86900; 86901; 86920; 86922; 93005; A9270-GY; J0690; J1100; J1885; J2250; J2274; J2405; J2590; J3475; J7120; P9016; U0002

== ENCOUNTER 2020-02-08 12:18 | Emergency (ER) | payer SELFPAY ==
--- NOTE | 2020-02-08 12:44 | EDM.PDOC ---
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 Pt is agitated and provides virtually no history. She denies being sick or hurt. 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 Onset: Unknown/Unsure Location: Reports: Generalized Severity: Severe Associated Symptoms: Reports: No Other Symptoms - Related Data Allergies Allergy/AdvReac Type Severity Reaction Status Date / Time amoxicillin Allergy Rash Verified 09/24/18 11:22 bupropion HCl Allergy Other Verified 09/24/18 11:22 [From Wellbutrin] venlafaxine HCl Allergy Other Verified 09/24/18 11:22 [From Effexor] prozac Allergy suicidal Uncoded 09/24/18 11:22 Past Medical History - Past Health History Medical/Surgical History: Denies Medical/Surgical History HEENT History: Reports: None Cardiovascular History: Reports: Other (See Below) Other Cardiovascular History: pre-eclampsia with prior Respiratory History: Reports: None Gastrointestinal History: Reports: None Genitourinary History: Reports: Renal Calculus, UTI, Recurrent SURVIVAL 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: Reports: Musculoskeletal History: Reports: None Neurological History: Reports: Seizure Psychiatric History: Reports: Addiction, Anxiety, Depression Endocrine/Metabolic History: Reports: Other (See Below) Other Endocrine/Metabolic History: Hx gestational diabetes Hematologic History: Reports: Anemia Immunologic History: Reports: None Oncologic (Cancer) History: Reports: None Dermatologic History: Reports: None - Infectious Disease History Infectious Disease History: Reports: Hepatitis C - Past Surgical History Head Surgeries/Procedures: Reports: None GI Surgical History: Reports: Cholecystectomy Female Surgical History: Reports: Section Social & Family History - Family History Family Medical History: Noncontributory - Caffeine Use Caffeine Use: Reports: Soda - Living Situation & Occupation Living situation: Reports: Single, with Family Occupation: Unemployed ED ROS GENERAL - Review of Systems Review Of Systems: Unable To Obtain Reason Not Obtained: pt uncooperative ED EXAM, GENERAL - Physical Exam Exam: See Below Exam Limited By: No Limitations General Appearance: Alert, No Apparent Distress, Anxious, Thin Eye Exam: Bilateral Eye: EOMI, Normal Inspection, PERRL Ears: Normal External Exam, Hearing Grossly Normal Nose: Normal Inspection, Normal Mucosa, No Blood Throat/Mouth: Normal Lips, Normal Oropharynx, Normal Voice, No Airway Compromise Head: Atraumatic, Normocephalic Neck: Normal Inspection, Full Range of Motion Respiratory/Chest: No Respiratory Distress, Lungs Clear, Normal Breath Sounds, No Accessory Muscle Use, Chest Non-Tender Cardiovascular: Normal Peripheral Pulses, Regular Rate, Rhythm, No Edema, No Gallop, No JVD, No Murmur, No Rub GI/Abdominal: Soft, Non-Tender Back Exam: Full Range of Motion Extremities: Normal Inspection Neurological: Alert, Oriented, CN II-XII Intact, Normal Gait, Inattentive (easily agitated) Psychiatric: Anxious Skin Exam: Warm, Dry, Intact, Normal Color, No Rash Course - Vital Signs Last Recorded V/S: Last Vital Signs Temp 97.6 F 02/08/20 12:35 Pulse 78 02/08/20 12:35 Resp 18 02/08/20 12:35 BP 142/69 H 02/08/20 12:35 Pulse Ox 99 02/08/20 12:35 - Orders/Labs/Meds Orders: Active Orders 24 hr Category Date Time Status CULTURE URINE [RM] Stat Lab 02/08/20 12:34 Received Labs: Laboratory Tests 02/08/20 02/08/20 02/08/20 Range/Units 12:34 12:34 12:34 WBC (5.0-10.0) 10^3/uL RBC (4.2-5.4) 10^6/uL Hgb (12.0-16.0) g/dL Hct (37.0-47.0) % MCV (80-100) fL MCH (27.0-34.0) pg MCHC (33.0-35.0) g/dL Plt Count (150-450) 10^3/uL Neut % (Auto) (42.2-75.2) % Lymph % (Auto) (20.5-50.1) % Story % (Auto) (2-8) % Eos % (Auto) (1.0-3.0) % Baso % (Auto) (0.0-1.0) % Sodium (136-145) mmol/L Potassium (3.5-5.1) mmol/L Chloride (98-107) mmol/L Carbon Dioxide (21-32) mmol/L Anion Gap (7-13) mEq/L BUN (7-18) mg/dL Creatinine (0.55-1.02) mg/dL Est Cr Clr Drug Dosing Estimated GFR (MDRD) BUN/Creatinine Ratio (No establ ref range) Glucose (74-99) mg/dL Calcium (8.5-10.1) mg/dL Total Bilirubin (0.2-1.0) mg/dL AST (15-37) U/L ALT (14-59) U/L Alkaline Phosphatase (46-116) U/L Total Protein (6.4-8.2) g/dL Albumin (3.4-5.0) g/dL Globulin Albumin/Globulin Ratio Urine Color Yellow (YELLOW) Urine Appearance Cloudy (CLEAR) Urine pH 7.0 (5.0-9.0) Ur Specific [place] 1.025 (1.005-1.030) Urine Protein Trace H (NEGATIVE) Urine Glucose (UA) Negative (NEGATIVE) Urine Ketones Negative (NEGATIVE) Urine Occult Blood Large H (NEGATIVE) Urine Nitrite Negative (NEGATIVE) Urine Bilirubin Negative (NEGATIVE) Urine Urobilinogen 0.2 (0.2-1.0) mg/dL Ur Leukocyte Esterase Large H (NEGATIVE) Urine RBC 5-10 H /HPF Urine WBC 75-100 H (0-5/HPF) /HPF Ur Epithelial Cells Many H (NOT SEEN) /HPF Amorphous Sediment Few (NOT SEEN) /HPF Urine Bacteria Moderate H (0-FEW/HPF) /HPF Urine Mucus Rare (NOT SEEN) /LPF Urine HCG, Qual Negative Salicylates (2.8-20(Therapeutic)) mg/dL Urine Opiates Screen Negative (NEGATIVE) Ur Oxycodone Screen Negative (NEGATIVE) Urine Methadone Screen Negative (NEGATIVE) Acetaminophen (10-30 (Therapeutic)) ug/mL Ur Barbiturates Screen Negative (NEGATIVE) U Tricyclic Antidepress Negative (NEGATIVE) Ur Phencyclidine Scrn Negative (NEGATIVE) Ur Amphetamine Screen Positive H (NEGATIVE) U Methamphetamines Scrn Positive H (NEGATIVE) Urine MDMA Screen Negative (NEGATIVE) U Benzodiazepines Scrn Negative (NEGATIVE) Urine Cocaine Screen Negative (NEGATIVE) U Marijuana (THC) Screen Positive H (NEGATIVE) Ethyl Alcohol (0) mg/dL 02/08/20 02/08/20 02/08/20 Range/Units 12:39 12:39 12:39 WBC 10.4 H (5.0-10.0) 10^3/uL RBC 4.78 (4.2-5.4) 10^6/uL Hgb 13.4 D (12.0-16.0) g/dL Hct 42.3 (37.0-47.0) % MCV 88.5 D (80-100) fL MCH 28.0 (27.0-34.0) pg MCHC 31.7 L (33.0-35.0) g/dL Plt Count 355 D (150-450) 10^3/uL Neut % (Auto) 76.7 H (42.2-75.2) % Lymph % (Auto) 16.0 L (20.5-50.1) % Story % (Auto) 5.6 (2-8) % Eos % (Auto) 1.7 (1.0-3.0) % Baso % (Auto) 0.0 (0.0-1.0) % Sodium 137 (136-145) mmol/L Potassium 3.8 (3.5-5.1) mmol/L Chloride 100 (98-107) mmol/L Carbon Dioxide 30 (21-32) mmol/L Anion Gap 10.8 (7-13) mEq/L BUN 14 (7-18) mg/dL Creatinine 0.90 (0.55-1.02) mg/dL Est Cr Clr Drug Dosing TNP Estimated GFR (MDRD) > 60 BUN/Creatinine Ratio 15.6 (No establ ref range) Glucose 125 H (74-99) mg/dL Calcium 9.2 D (8.5-10.1) mg/dL Total Bilirubin 0.5 (0.2-1.0) mg/dL AST 22 (15-37) U/L ALT 31 (14-59) U/L Alkaline Phosphatase 110 (46-116) U/L Total Protein 8.5 H (6.4-8.2) g/dL Albumin 4.1 (3.4-5.0) g/dL Globulin 4.4 Albumin/Globulin Ratio 0.9 Urine Color (YELLOW) Urine Appearance (CLEAR) Urine pH (5.0-9.0) Ur Specific [place] (1.005-1.030) Urine Protein (NEGATIVE) Urine Glucose (UA) (NEGATIVE) Urine Ketones (NEGATIVE) Urine Occult Blood (NEGATIVE) Urine Nitrite (NEGATIVE) Urine Bilirubin (NEGATIVE) Urine Urobilinogen (0.2-1.0) mg/dL Ur Leukocyte Esterase (NEGATIVE) Urine RBC /HPF Urine WBC (0-5/HPF) /HPF Ur Epithelial Cells (NOT SEEN) /HPF Amorphous Sediment (NOT SEEN) /HPF Urine Bacteria (0-FEW/HPF) /HPF Urine Mucus (NOT SEEN) /LPF Urine HCG, Qual Salicylates 2.8 (2.8-20(Therapeutic)) mg/dL Urine Opiates Screen (NEGATIVE) Ur Oxycodone Screen (NEGATIVE) Urine Methadone Screen (NEGATIVE) Acetaminophen 0 L (10-30 (Therapeutic)) ug/mL Ur Barbiturates Screen (NEGATIVE) U Tricyclic Antidepress (NEGATIVE) Ur Phencyclidine Scrn (NEGATIVE) Ur Amphetamine Screen (NEGATIVE) U Methamphetamines Scrn (NEGATIVE) Urine MDMA Screen (NEGATIVE) U Benzodiazepines Scrn (NEGATIVE) Urine Cocaine Screen (NEGATIVE) U Marijuana (THC) Screen (NEGATIVE) Ethyl Alcohol < 3 (0) mg/dL - Re-Assessments/Exams Free Text/Narrative Re-Assessment/Exam: 02/08/20 13:11 Pt no medical contraindication to being admitted to CRU, substance abuse, detox, or a mental health facility at this time. Departure - Departure Time of Disposition: 13:28 (d/c'd with case management social worker to go to CRU) Disposition: Home, Self-Care 01 Condition: Fair Clinical Impression: Methamphetamine addiction, Polysubstance abuse - Discharge Information *PRESCRIPTION DRUG MONITORING PROGRAM REVIEWED*: No *COPY OF PRESCRIPTION DRUG MONITORING REPORT IN PATIENT ANAHY: No Instructions: Substance Use Disorder and Mental Illness, Stimulant Use Disorder-Methamphetamines Forms: ED Department Discharge Additional Instructions: Go to the CRU for evaluation. Sepsis Event Note (ED) - Focused Exam Vital Signs: Vital Signs Temp Pulse Resp BP Pulse Ox 02/08/20 12:35 97.6 F 78 18 142/69 H 99 - My Orders Last 24 Hours: My Active Orders 02/08/20 12:34 CULTURE URINE [RM] Stat - Assessment/Plan Last 24 Hours: My Active Orders 02/08/20 12:34 CULTURE URINE [RM] Stat
[2020-02-08 13:05] LABS: ANION GAP 10.8 mEq/L (7-13); CHLORIDE,CL 100 mmol/L (98-107); SODIUM,NA 137 mmol/L (136-145)
[2020-02-08 13:12] VITALS: BP 142/69; PULSE 78
[2020-02-08 13:16] LABS: ACETAMINOPHEN 0 ug/mL (10-30 (Therapeutic))
== END 2020-02-08 13:32 | disposition home or self-care (01) ==
LOC: DL.ED 12:18
DX: F15.20 Other stimulant dependence, uncomplicated (principal); F19.10 Other psychoactive substance abuse, uncomplicated; Z88.1 Allergy status to other antibiotic agents; Z88.8 Allergy status to other drugs, medicaments and biological substances
CPT/HCPCS: 36415; 80053; 80305-QW; 80307; 81001; 81025; 85025; 87086; 99284

== ENCOUNTER 2020-05-31 23:49 | Emergency (ER) | payer MEDICAID ==
[2020-05-31 23:58] VITALS: BP 161/98; PULSE 117
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
[2020-06-01] MEDS ORDERED: Acetaminophen 325 MG Tab PO ONE (00:40)
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
== END 2020-06-01 00:55 | disposition home or self-care (01) ==
LOC: DL.ED 23:49
DX: S60.222A Contusion of left hand, initial encounter (principal); S20.222A Contusion of left back wall of thorax, initial encounter; S00.03XA Contusion of scalp, initial encounter; F17.210 Nicotine dependence, cigarettes, uncomplicated; Z88.0 Allergy status to penicillin; Z88.8 Allergy status to other drugs, medicaments and biological substances; Y04.2XXA Assault by strike against or bumped into by another person, initial encounter
CPT/HCPCS: 73130-LT; 99283; A9270-GY

== ENCOUNTER 2020-07-29 21:57 | Emergency (ER) | payer MEDICAID ==
[2020-07-29 22:27] VITALS: BP 127/78; PULSE 74
[2020-07-29] MEDS ORDERED: Sodium Chloride 0.9% 1,000 ML IV ONE (22:40)
[2020-07-29] MEDS ORDERED: Clindamycin Phosphate 900 MG in Sodium Chloride 0.9% 100 ML IV ONE (22:40)
[2020-07-29 23:26] LABS: ANION GAP 12.5 mEq/L (7-13); CHLORIDE,CL 100 mmol/L (98-107); SODIUM,NA 137 mmol/L (136-145)
[2020-07-30] MEDS ORDERED: Acetaminophen/HYDROcodone 325-10 MG Tab PO ONE (00:25)
--- NOTE | 2020-07-30 00:30 | EDM.PDOC ---
ED HPI GENERAL MEDICAL PROBLEM - General Chief Complaint: Skin Complaint Stated Complaint: BRUISE ON BACK INFECTED, LAST DAY OF ANTIBIOTICS Time Seen by Provider: 07/30/20 00:25 Source of Information: Reports: Patient History Limitations: Reports: No Limitations - History of Present Illness INITIAL COMMENTS - FREE TEXT/NARRATIVE: was at clinic last Saturday for left should infection. got bactrim and been keeping it clean but looks worse tonight and more painful and got worried. denies fever-chills. Treatments ENGINE TESTER: Reports: Acetaminophen, NSAIDS Upper back. Pain Score (Numeric/FACES): 7 - Related Data Allergies Allergy/AdvReac Type Severity Reaction Status Date / Time amoxicillin Allergy Rash Verified 07/29/20 22:27 bupropion HCl Allergy Other Verified 09/24/18 11:22 [From Wellbutrin] venlafaxine HCl Allergy Other Verified 07/29/20 22:27 [From Effexor] prozac Allergy suicidal Uncoded 07/29/20 22:27 Home Meds: Home Meds Buprenorphine/Naloxone [Buprenorphine-Naloxone 8 MG-2 MG] 2 mg PO DAILY 07/29/20 [History] Methylphenidate HCl [Methylphenidate ER] 36 mg PO DAILY 07/29/20 [History] buPROPion HCL [Bupropion Xl] 300 mg PO DAILY 07/29/20 [History] cloNIDine [Catapres] 0.2 mg PO DAILY 07/29/20 [History] Past Medical History - Past Health History Medical/Surgical History: Denies Medical/Surgical History HEENT History: Reports: None Cardiovascular History: Reports: Other (See Below) Other Cardiovascular History: pre-eclampsia with prior Respiratory History: Reports: None Gastrointestinal History: Reports: None Genitourinary History: Reports: Renal Calculus, UTI, Recurrent 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: Musculoskeletal History: Reports: None Neurological History: Reports: Seizure Psychiatric History: Reports: Addiction, Anxiety, Depression Endocrine/Metabolic History: Reports: Diabetes, Gestational Other Endocrine/Metabolic History: Hx gestational diabetes Hematologic History: Reports: Anemia Immunologic History: Reports: None Oncologic (Cancer) History: Reports: None Dermatologic History: Reports: None - Infectious Disease History Infectious Disease History: Reports: Hepatitis C - Past Surgical History Head Surgeries/Procedures: Reports: None GI Surgical History: Reports: Cholecystectomy Female Surgical History: Reports: Section Social & Family History - Family History Family Medical History: No Pertinent Family History - Tobacco Use Tobacco Use Status *Q: Current Some Day Tobacco User Years of Tobacco use: 9 Packs/Tins Daily: 0.1 - Caffeine Use Caffeine Use: Reports: Coffee, Soda - Recreational Drug Use Recreational Drug Use: Yes Drug Use in Last 12 Months: Yes Recreational Drug Type: Reports: Methamphetamine Recreational Drug Use Frequency: Not Used In Over 6 Months - Living Situation & Occupation Living situation: Reports: Single, with Family Occupation: Unemployed ED ROS GENERAL - Review of Systems Review Of Systems: Comprehensive ROS is negative, except as noted in HPI. ED EXAM, SKIN/RASH Exam: See Below Exam Limited By: No Limitations General Appearance: Alert, WD/WN, Mild Distress, Moderate Distress, Other (tearful) Eye Exam: Bilateral Eye: PERRL (pupils ER @ 4mm) Ears: Hearing Grossly Normal Throat/Mouth: Normal Voice, No Airway Compromise Head: Atraumatic Neck: Non-Tender, Full Range of Motion Respiratory/Chest: No Respiratory Distress Cardiovascular: Regular Rate, Rhythm GI/Abdominal: Soft, Non-Tender (Female) Exam: Deferred Rectal (Female) Exam: Deferred Back Exam: Other (left shoulder 4" size open wound no active drainage, mild local erythema without lymphangitis, mild swelling, ROM wnl, NV wnl.) Extremities: Normal Range of Motion Neurological: Alert, Oriented, Normal Cognition, Normal Gait, No Motor/Sensory Deficits Psychiatric: Flat Affect, Tearful Skin: Warm, Dry, Normal Color Location, Skin: Upper Extremity, Left Characteristics: Erythematous Associated features: Warmth, Tenderness, Swelling, Scaling, Inflammation, Crusting. No: Lymphangitis, Weeping Lymphatic: No Adenopathy Course - Vital Signs Last Recorded V/S: Last Vital Signs Temp 36.2 C 07/29/20 22:00 Pulse 74 07/29/20 22:00 Resp 16 07/29/20 22:00 BP 127/78 07/29/20 22:00 Pulse Ox 100 07/29/20 22:00 - Orders/Labs/Meds Orders: Active Orders 24 hr Category Date Time Status CULTURE BLOOD [BC] Stat Lab 07/29/20 22:48 Received Acetaminophen/HYDROcodone [Trion 325-10 MG] Med 07/30/20 00:25 Once 1 tab PO ONETIME ONE Labs: Laboratory Tests 07/29/20 07/29/20 07/29/20 Range/Units 22:48 22:48 22:48 WBC 10.4 H (5.0-10.0) 10^3/uL RBC 3.67 L (4.2-5.4) 10^6/uL Hgb 9.8 L D (12.0-16.0) g/dL Hct 30.6 L (37.0-47.0) % MCV 83.4 D (80-100) fL MCH 26.7 L (27.0-34.0) pg MCHC 32.0 L (33.0-35.0) g/dL Plt Count 479 H D (150-450) 10^3/uL Neut % (Auto) 60.1 (42.2-75.2) % Lymph % (Auto) 30.2 (20.5-50.1) % [place] % (Auto) 7.1 (2-8) % Eos % (Auto) 2.4 (1.0-3.0) % Baso % (Auto) 0.2 (0.0-1.0) % Add Manual Diff Yes Neutrophils % (Manual) 61 (42-75) % Band Neutrophils % 2 % Lymphocytes % (Manual) 30 (20-50) % Monocytes % (Manual) 5 (2-8) % Eosinophils % (Manual) 2 (1-3) % Sodium 137 (136-145) mmol/L Potassium 4.5 (3.5-5.1) mmol/L Chloride 100 (98-107) mmol/L Carbon Dioxide 29 (21-32) mmol/L Anion Gap 12.5 (7-13) mEq/L BUN 17 (7-18) mg/dL Creatinine 0.90 (0.55-1.02) mg/dL Est Cr Clr Drug Dosing 79.64 mL/min Estimated GFR (MDRD) > 60 BUN/Creatinine Ratio 18.9 (No establ ref range) Glucose 109 H (74-99) mg/dL Lactic Acid 0.8 (0.4-2.0) mmol/L Calcium 9.2 (8.5-10.1) mg/dL Total Bilirubin 0.1 L (0.2-1.0) mg/dL AST 18 (15-37) U/L ALT 28 (14-59) U/L Alkaline Phosphatase 117 H (46-116) U/L Total Protein 7.7 (6.4-8.2) g/dL Albumin 3.3 L (3.4-5.0) g/dL Globulin 4.4 Albumin/Globulin Ratio 0.75 HCG, Qual Negative Meds: Medications Discontinued Medications Generic Name Dose Route Start Last Admin Trade Name Freq PRN Reason Stop Dose Admin Clindamycin Phosphate 900 mg/ 106 mls @ 200 mls/hr 07/29/20 22:40 07/29/20 22:52 Sodium Chloride IV 07/29/20 23:11 200 mls/hr ONETIME ONE Administration Sodium Chloride 1,000 mls @ 999 mls/hr 07/29/20 22:40 07/29/20 22:50 Normal Saline IV 07/29/20 23:40 999 mls/hr .BOLUS ONE Administration - Re-Assessments/Exams Free Text/Narrative Re-Assessment/Exam: 07/30/20 00:31 results discussed with pt. Departure - Departure Time of Disposition: 00:31 Disposition: Home, Self-Care 01 Condition: Good Clinical Impression: Wound infection - Discharge Information Instructions: Wound Infection, [id number] Additional Instructions: 1) keep wound clean dry covered 2) return if develops fever and worsening of wound 3) follow up at clinic Saturday for SURGICAL CONSULT rx given; clindamycin 300mg qid x 40 vicodin 5/325mg bid prn x 6 Sepsis Event Note (ED) - Evaluation Sepsis Screening Result: No Definite Risk - Focused Exam Vital Signs: Vital Signs Temp Pulse Resp BP Pulse Ox 07/29/20 22:00 36.2 C 74 16 127/78 100 - My Orders Last 24 Hours: My Active Orders 07/29/20 22:48 CULTURE BLOOD [BC] Stat 07/30/20 00:25 Acetaminophen/HYDROcodone [Trion 325-10 MG] 1 tab PO ONETIME ONE - Assessment/Plan Last 24 Hours: My Active Orders 07/29/20 22:48 CULTURE BLOOD [BC] Stat 07/30/20 00:25 Acetaminophen/HYDROcodone [Trion 325-10 MG] 1 tab PO ONETIME ONE
== END 2020-07-30 00:47 | disposition home or self-care (01) ==
LOC: DL.ED 21:57
DX: S41.002A Unspecified open wound of left shoulder, initial encounter (principal); L08.9 Local infection of the skin and subcutaneous tissue, unspecified; Z88.0 Allergy status to penicillin; Z88.8 Allergy status to other drugs, medicaments and biological substances; Z79.899 Other long term (current) drug therapy; Z72.0 Tobacco use; X58.XXXA Exposure to other specified factors, initial encounter
CPT/HCPCS: 36415; 80053; 83605; 84703; 85025; 87040; 96365; 99283; A9270; J3490; J7030

== ENCOUNTER 2022-05-09 01:35 | Emergency (ER) | payer MEDICAID ==
[2022-05-09 02:07] VITALS: BP 116/79; PULSE 98
[2022-05-09] MEDS ORDERED: Ondansetron 4 MG Tab.DIS PO ONE (02:11)
[2022-05-09] MEDS ORDERED: Metoclopramide 10 MG/2 ML SDV IVPUSH ONE (03:02)
[2022-05-09] MEDS ORDERED: Sodium Chloride 0.9% 1,000 ML IV ONE (03:02)
[2022-05-09] MEDS ORDERED: Famotidine 20 MG/2 ML SDV IVPUSH ONE (03:24)
[2022-05-09 03:44] LABS: ANION GAP 11.7 mEq/L (7-13); CHLORIDE,CL 103 mmol/L (98-107); SODIUM,NA 140 mmol/L (136-145)
[2022-05-09] MEDS ORDERED: LORazepam 1 MG Tab PO STA (03:45)
[2022-05-09 03:49] LABS: ESTIMATED GFR 101 mL/min (>=60)
[2022-05-09 03:50] LABS: AMPHETAMINES,URINE NEGATIVE (NEGATIVE); BARBITURATES,URINE NEGATIVE (NEGATIVE); BENZODIAZEPINE,URINE NEGATIVE (NEGATIVE); MDMA (ECSTASY), URINE NEGATIVE (NEGATIVE); METHADONE,URINE NEGATIVE (NEGATIVE); METHAMPHETAMINES,URINE NEGATIVE (NEGATIVE); OPIATES,URINE NEGATIVE (NEGATIVE); OXYCODONE,URINE NEGATIVE (NEGATIVE); PHENCYCLIDINE,URINE NEGATIVE (NEGATIVE); TCA,URINE NEGATIVE (NEGATIVE)
== END 2022-05-09 06:12 | disposition home or self-care (01) ==
LOC: DL.ED 01:35
DX: K52.9 Noninfective gastroenteritis and colitis, unspecified (principal)
CPT/HCPCS: 36415; 80053; 80305; 82150; 83690; 84703; 85025; 96361; 96374; 96375; 99284; A9270; J2765; J3490; J7030